=== PATIENT | female | born 1955 | race Caucasian/White ===

== ENCOUNTER 2019-11-20 10:46 | Outpatient (CLI) | payer OTHER, SELFPAY ==
--- NOTE | ~2019-11-20 | XR_ITS ---
EXAMINATION: XR knee LT 3V DATE: 11/20/2019 11:06 INDICATION: Left knee pain. TECHNIQUE: 3 views of left knee were obtained. COMPARISON: None. FINDINGS: Bone alignment is normal. No fracture. There is mild tricompartment osteoarthritis. No knee joint effusion. IMPRESSION: 1. Mild left knee osteoarthritis. Reviewed, dictated and finalized at location B.
== END 2019-11-20 10:47 | disposition home or self-care (01) ==
PROVIDERS: PCP Internal Medicine; Visit Provider Internal Medicine
DX: M25.562 Pain in left knee (principal)
CPT/HCPCS: 73562

== ENCOUNTER 2019-12-02 15:59 | Outpatient (RCR) | payer OTHER, SELFPAY ==
--- NOTE | 2019-12-02 16:41 | PTOPEVAL ---
Thank you for referring Cyndi Pearce to [facility].? The patient is scheduled to be seen for therapy? ____x/week for ___ weeks. Please review, sign, date and return this plan of care ALIDA. I agree with and certify that the following plan of care is medically necessary. Referring Physician Date Admitting Provider: Attending Provider: Peterson Cartwright MD Referring Provider: *PT Outpatient Evaluation Start: 12/02/19 16:12 Freq: Status: Active Protocol: Document 12/02/19 16:12 MAX (Rec: 12/02/19 16:36 MAX [email or web address]) Therapy Assessment Status Assessment Status Assessment Status Evaluation Evaluation Information Problem Diagnosis left knee pain Onset 11/21/19 Additional Evaluation Detail LEFS= 72% limitation Subjective Information Pt. reports she was walking Query Text:As Reported By Patient/ through [facility] and the left Family knee gave out with immediate pain. She reports that she underwent xray which revealed arthritis. She reports that she is currently taking prednisone which has helped to reduce the pressure. She reports that she is continuing to work on her feet all day despite her pain. She reports that that her goal is to reduce her pain. Prior Level of Function Activity Level (Last 3 Months) Hand Dominance Right Activity of Daily Living Ability Independent Indoor/Home Mobility Independent Community Mobility Independent Stairs Ability Independent Functional Cognition (Planning, Shopping Independent , Taking Medications) Cooking Yes Cleaning Yes Laundry Yes Shopping Yes Driving Yes Pain Assessment Pain Scale Pain Scale Used Numeric (1 - 10) Self Report Pain Assessment Left Knee(s) Reported Pain Level 2 Pain Description Aching Lowest Pain Intensity 2 Greatest Pain Intensity 10 Pain Score Pain Score 2: Self Report Lower Extremity Range of Motion General Lower Extremity Range of Motion Gross Lower Extremity Range of Motion right knee AROM 0-118 degree Comments left knee AROM 3-109 degrees Lower Extremity Muscle Strength Testing General Lower Extremity Strength Gross Lower Extremity Strength right hip flexion 4+/5, left hip flexion 4+/5, rig
--- NOTE | 2020-01-08 07:26 | PTOPEVAL ---
Thank you for referring Cyndi Pearce to [facility]. I agree with and certify that the following plan of care is medically necessary. Referring Physician Date Admitting Provider: Attending Provider: Peterson Cartwright MD Referring Provider: *PT Outpatient Evaluation Start: 12/02/19 16:12 Freq: Status: Active Protocol: Document 01/07/20 16:00 MAX (Rec: 01/08/20 07:26 ASHLEY [email or web address]) Therapy Assessment Status Assessment Status Assessment Status Discharge Evaluation Information Problem Diagnosis left knee pain Additional Evaluation Detail LEFS= 50% limitation Subjective Information Pt. reports slight improvement Query Text:As Reported By Patient/ in pain intensity. She Family states that she still has increase in pain at the end of a workday that limits her ability to participate in activity at home. She states that she is still discouraged by her remaining pain. She states that she will return to her doctor and discuss possible MRI. Pain Assessment Pain Scale Pain Scale Used Numeric (1 - 10) Self Report Pain Assessment Left Knee(s) Reported Pain Level 4 Lowest Pain Intensity 2 Greatest Pain Intensity 8 Pain Score Pain Score 4: Self Report Lower Extremity Range of Motion General Lower Extremity Range of Motion Gross Lower Extremity Range of Motion left knee AROM 0-111 degrees Comments Lower Extremity Muscle Strength Testing General Lower Extremity Strength Gross Lower Extremity Strength right hip flexion 5/5, left hip flexion 5/5, right knee flexion 5/5, left knee flexion 4+/5, right knee extension 5/ 5, left knee extension 4+/5, bilateral ankle dorsiflexion 5 /5 Muscle Length Testing Muscle Length Testing Left Hamstring Length 15 Query Text:(90 - 90 Position) Right Hamstring Length 10 Query Text:(90 - 90 Position) Palpation Assessment Palpation Palpation TTP continues to be noted along the medial knee joint line. Special Tests-Lower Extremity Knee Special Tests Bebo's Positive Left Gait Assessment Gait Assessment Additional Ambulation Comments Pt. continues to ambulate with noted antalgia wit
== END 2020-01-07 17:00 | disposition home or self-care (01) ==
LOC: CHSPT 15:59
PROVIDERS: PCP Internal Medicine; Visit Provider Internal Medicine
DX: M25.562 Pain in left knee (principal)
CPT/HCPCS: 97014; 97110; 97161; G0283

== ENCOUNTER 2020-01-01 14:34 | Outpatient (CLI) | payer OTHER, SELFPAY ==
--- NOTE | ~2020-01-01 | MM_ITS ---
EXAMINATION: MM screening tyler BI w shaquille HISTORY: Screening TECHNIQUE: Craniocaudal and mediolateral oblique 3-D tomosynthesis images were obtained and synthetic 2-D images were generated. CAD analysis was submitted and interpreted. COMPARISON: Comparison to multiple prior studies sequentially, with oldest reviewed study dated 08/09. BREAST PARENCHYMAL COMPOSITION: There are scattered areas of fibroglandular density. FINDINGS: There is no evidence of suspicious mass, calcification, or architectural distortion to sugg est malignancy in either breast. There has been no suspicious interval change. IMPRESSION: 1. No mammographic evidence of malignancy. 2. Recommend routine screening mammography in one year. BI-RADS Category 1: Negative Reviewed, dictated and finalized at location A.
== END 2020-01-01 14:35 | disposition home or self-care (01) ==
LOC: CHSIMG 14:35
PROVIDERS: PCP Internal Medicine; Visit Provider Internal Medicine
DX: Z12.31 Encounter for screening mammogram for malignant neoplasm of breast (principal)
CPT/HCPCS: 77063; 77067

== ENCOUNTER 2020-08-11 07:17 | Outpatient (CLI) | payer OTHER, SELFPAY ==
[2020-08-11 07:33] LABS: Add Urine Microscopic? NO; Appearance Urine Clear (Clear); Basophils Absolute Auto 0.07 K/mm3 (0.00-0.10); Basophils Percent Auto 1.1 % (0.0-1.0); Bilirubin Urine Negative (Negative); Blood Urine Negative (Negative); Color Urine Yellow (Yellow); Eosinophils Absolute Auto 0.35 K/mm3 (0.02-0.50); Eosinophils Percent Auto 5.4 % (1.0-6.0); Glucose Urine UA Negative (Negative); Hematocrit 36.6 % (35.0-49.0); Hemoglobin 11.7 g/dL (12.0-15.0); Immature Granulocyte Absolute 0.03 K/mm3 (0.00-0.00); Immature Granulocyte Percent A 0.5 % (0.0-0.0); Ketones Urine Negative (Negative); Leukocyte Esterase Ur Negative LEU/UL (Negative); Lymphocytes Absolute Auto 1.35 K/mm3 (1.10-4.50); Lymphocytes Percent Auto 20.6 % (18.0-42.0); Mean Corpuscular Hemoglobin 26.8 pg (27.0-31.0); Mean Corpuscular Volume 83.8 fL (78.0-102.0); Mean Platelet Volume 8.8 fl (9.2-11.8); Monocytes Absolute Auto 0.61 K/mm3 (0.10-0.90); Monocytes Percent Auto 9.3 % (2.0-11.0); Neutrophils Absolute Auto 4.1 K/mm3 (1.7-7.2); Neutrophils Percent Auto 63.1 % (50.0-70.0); Nitrate Urine Negative (Negative); Platelet Count Result 255 K/mm3 (150-420); Protein Urine Negative (Negative); Red Blood Count 4.37 M/mm3 (4.20-5.40); Red Cell Distribution Width 15.8 % (11.6-14.4); Urobilinogen Urine 0.2 mg/dL (0.2-1.0); White Blood Count 6.5 K/mm3 (4.8-10.8); pH Urine 6.5 (5.0-8.0)
[2020-08-11 09:42] LABS: Alanine Aminotransferase 21 U/L (14-59); Albumin Level 3.9 g/dL (3.4-5.0); Alkaline Phosphatase 104 U/L (46-116); Anion Gap 9 mmol/L (8-16); Aspartate Amino Transferase < 10 U/L (15-37); Bilirubin,Total 0.8 mg/dL (0.00-1.00); Blood Urea Nitrogen 37 mg/dL (7-18); Calcium 9.8 mg/dL (8.5-10.1); Carbon Dioxide 27 mmol/L (21-32); Chloride 105 mmol/L (98-108); Cholesterol 185 mg/dL (0-200); Estimated Glomerular Filt Rate 60; Glucose 88 mg/dL (70-99); HDL Direct 50 mg/dL (40-60); LDL Cholesterol Calculated 119 mg/dL (<130); Osmolality Calculated 299 mOsm/kg (285-295); Sodium 141 mmol/L (136-145); Thyroid Stimulating Hormone 2.03 uIU/mL (0.36-3.74); Total Protein 6.7 g/dL (6.4-8.2); Triglycerides 81 mg/dL (0-150)
== END 2020-08-11 07:18 | disposition home or self-care (01) ==
LOC: CHSLAB 07:20
PROVIDERS: PCP Internal Medicine; Visit Provider Internal Medicine
DX: E66.3 Overweight (principal); I10 Essential (primary) hypertension
CPT/HCPCS: 36415; 80053; 80061; 81003; 84443; 85025

== ENCOUNTER 2020-11-08 15:08 | Outpatient (RCR) | payer MEDICARE, OTHER, MEDICAID, SELFPAY ==
--- NOTE | 2020-11-08 15:52 | PTOPEVAL ---
Thank you for referring Cyndi Pearce to [facility]. Please review, sign, date and return this plan of care ALIDA. I agree with and certify that the following plan of care is medically necessary. Referring Physician Date Admitting Provider: Attending Provider: Evens Dowell, MD Referring Provider: *PT Outpatient Evaluation Start: 11/08/20 15:15 Freq: Status: Active Protocol: Document 11/08/20 15:15 MAX (Rec: 11/08/20 15:51 MAX [email or web address]) Therapy Assessment Status Assessment Status Assessment Status Evaluation Evaluation Information Problem Diagnosis pre op left TKA Onset 10/25/19 Subjective Information Pt. reports that she will Query Text:As Reported By Patient/ undergo left TKA on 12/21/20. Family She reports that knee pain began around 10/25/19. She recalls initial pain after walking through [employer] and knee gave out. She states that her pain is constant. She states that pain is most notable with steps. She states that she has 5 step sto enter her home. She reports that her goal is to develop an exercise program to perform before surgery. 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 states that work requires Comments her to be on her feet majority of the day for 5 hours 4 days a week. She states that she has a cane and walker at home. Pain Assessment Timing of Pain Assessment Timing of Pain Assessment Pre-Treatment Pain Scale Pain Scale Used Numeric (1 - 10) Self Report Pain Assessment Left Knee(s) Reported Pain Level 4 Pain Frequency Continuous Lowest Pain Intensity 2 Greatest Pain Intensity 8 Pain Aggravating Factors
--- NOTE | 2020-12-23 16:08 | PTOPEVAL ---
Thank you for referring Cyndi Pearce to [facility].? The patient is scheduled to be seen for therapy? ____x/week for ___ weeks. Please review, sign, date and return this plan of care ALIDA. I agree with and certify that the following plan of care is medically necessary. Referring Physician Date Admitting Provider: Attending Provider: Evens Dowell, Referring Provider: *PT Outpatient Evaluation Start: 11/08/20 15:15 Freq: Status: Active Protocol: Document 12/23/20 15:18 [facility] (Rec: 12/23/20 16:05 [facility] [email or web address]) Therapy Assessment Status Assessment Status Assessment Status Re-evaluation Evaluation Information Problem Diagnosis s/p L TKA Onset 12/21/20 Subjective Information patient reports she had L TKA Query Text:As Reported By Patient/ on 12/21/20. she reports the Family surgery was performed by Dr. Dowell. patient reports she cannot have pain meds. she reports she has been using tylenol and ice compression. she is currently using a walker for ambulation. she reports she has steps at home to get in the house (5 steps). Prior Level of Function Comments Additional Prior Level of Function prior to surgery, patient Comments reports she had pain at all times in the L knee and was limping a lot. she reports she was doing exercises daily to improve her ROM and strength. Pain Assessment Timing of Pain Assessment Timing of Pain Assessment Assessment Pain Scale Pain Scale Used Numeric (1 - 10) Self Report Pain Assessment Left Knee(s) Reported Pain Level 6 Pain Score Pain Score 6: Self Report Interventions Used Interventions Used By Clinicians Activity or ADL's,Compression Pump,Education,Exercise,Ice Lower Extremity Range of Motion Knee Range of Motion Left Knee Flexion Range of Motion - Active 58 Knee Extension Range of Motion - Active -3 Query Text: Right Knee Flexion Range of Motion - Active 116 Knee Extension Range of Motion - Active 0 Query Text: Lower Extremity Muscle Strength Testing Hip Strength Right Hip Flexion Strength 4+ Good + Left Hip Flexion Strength 2 Poor Knee Strength Right Knee Flexion Strength 4+ Good + Knee Extension Strength 4+ Good + Left Knee Flexion Strength 3+ Fair + Knee Extension Strength 3+ Fair + M
--- NOTE | 2021-01-28 14:19 | PTOPEVAL ---
Thank you for referring Cyndi Pearce to [facility].? The patient is scheduled to be seen for therapy? ____x/week for ___ weeks. Please review, sign, date and return this plan of care ALIDA. I agree with and certify that the following plan of care is medically necessary. Referring Physician Date Admitting Provider: Attending Provider: Evens Dowell, Referring Provider: *PT Outpatient Evaluation Start: 11/08/20 15:15 Freq: Status: Active Protocol: Document 01/28/21 13:06 ACR (Rec: 01/28/21 14:10 ACR [email or web address]) Therapy Assessment Status Assessment Status Assessment Status Progress Evaluation Information Problem Diagnosis L TKA Onset 12/21/20 Subjective Information Patient reports that since Query Text:As Reported By Patient/ beginning therapy she has been Family feeling pretty good. She states that she still has quite a bit of swelling that limits her mobility. She reports that if she stands or walks for too long she is really sore and swollen. She states that steps are slightly difficult but takes them slow . Pain Assessment Timing of Pain Assessment Timing of Pain Assessment Assessment Pain Scale Pain Scale Used Numeric (1 - 10) Self Report Pain Assessment Left Knee(s) Reported Pain Level 0 Greatest Pain Intensity 3 Pain Score Pain Score 0: Self Report Interventions Used Interventions Used By Clinicians Activity or ADL's,Exercise Lower Extremity Range of Motion Knee Range of Motion Left Knee Flexion Range of Motion - Active 96 Knee Extension Range of Motion - Active 0 Query Text: Lower Extremity Muscle Strength Testing Hip Strength Right Hip Flexion Strength 4+ Good + Left Hip Flexion Strength 3+ Fair + Knee Strength Right Knee Flexion Strength 5 Normal Knee Extension Strength 5 Normal Left Knee Flexion Strength 4 Good Knee Extension Strength 4 Good Palpation Assessment Palpation Palpation R medial joint line: 40 cm L medial joint line: 44.5 cm General Exercise General Exercises Exercise Description -Nustep x 10 min L5 Query Text:Record Sets, Reps, - SAQ 2# x 30 Resistance, and Position - SLR x 25 - passive stretching into knee flexion x 6 minutes - gastroc incline board x 2
== END 2021-02-04 23:59 | disposition still patient (30) ==
LOC: CHSPT 15:08
PROVIDERS: Visit Provider Orthopaedic Surgery
DX: M17.12 Unilateral primary osteoarthritis, left knee (principal); Z96.652 Presence of left artificial knee joint
CPT/HCPCS: 97016; 97110; 97161; 97164; 97530

== ENCOUNTER 2020-11-26 10:20 | Outpatient (CLI) | payer OTHER, SELFPAY ==
--- NOTE | ~2020-11-26 | XR_ITS ---
EXAMINATION: XR chest 2V DATE: 11/26/2020 11:17 INDICATION: History of hypertension TECHNIQUE: PA and lateral views of the chest are obtained. COMPARISON: None available FINDINGS: The lungs are free of acute opacities. There is no pleural effusion or pneumothorax. The ca rdiomediastinal silhouette is normal. There are bridging osteophytes at multiple levels in the spine, consistent with diffuse idiopathic skeletal hyperostosis (DISH). There are partially imaged changes of fusion procedure in the lower cervical spine. Right upper paratracheal surgical clips are noted. IMPRESSION: 1. No acute cardiopulmonary abnormality. Reviewed, dictated and finalized at location A.
[2020-11-26 10:37] LABS: Basophils Absolute Auto 0.05 K/mm3 (0.00-0.10); Eosinophils Percent Auto 7.9 % (1.0-6.0); Hematocrit 37.6 % (35.0-49.0); Immature Granulocyte Absolute 0.03 K/mm3 (0.00-0.00); Immature Granulocyte Percent A 0.6 % (0.0-0.0); Lymphocytes Absolute Auto 1.06 K/mm3 (1.10-4.50); Mean Corpuscular HGB Conc 31.9 g/dL (32.0-36.0); Mean Corpuscular Volume 84.7 fL (78.0-102.0); Mean Platelet Volume 8.9 fl (9.2-11.8); Monocytes Absolute Auto 0.51 K/mm3 (0.10-0.90); Monocytes Percent Auto 10.1 % (2.0-11.0); Neutrophils Percent Auto 59.4 % (50.0-70.0); Platelet Count Result 264 K/mm3 (150-420); Red Blood Count 4.44 M/mm3 (4.20-5.40); Red Cell Distribution Width 15.5 % (11.6-14.4)
[2020-11-26 10:38] LABS: Add Urine Microscopic? NO; Appearance Urine Clear (Clear); Bilirubin Urine Negative (Negative); Blood Urine Negative (Negative); Color Urine Light Yellow (Yellow); Glucose Urine UA Negative (Negative); Ketones Urine Negative (Negative); Leukocyte Esterase Ur Negative (Negative); Nitrate Urine Negative (Negative); Protein Urine Negative (Negative); Specific Grav Ur <= 1.005 (1.010-1.020); Urobilinogen Urine 0.2 mg/dL (0.2-1.0)
[2020-11-26 10:53] LABS: INR 1.1; Partial Thromboplastin Time 26.2 SEC (23.90-30.70); Prothrombin Time 11.4 Seconds (9.50-12.10)
--- NOTE | 2020-11-26 10:55 | ECG_ITS ---
Measurements Intervals [place] Rate: 51 P: 59 NC: 180 QRS: 38 QRSD: 91 T: 49 QT: 401 QTc: 373 Interpretive Statements SINUS BRADYCARDIA LOW QRS VOLTAGE IN PRECORDIAL LEADS CANNOT RULE OUT SEPTAL INFARCT, AGE INDETERMINATE ABNORMAL ECG Electronically Signed On 11-26-2020 12:13:30 CDT by Man Henry D.O.
[2020-11-26 12:00] LABS: Alanine Aminotransferase 24 U/L (14-59); Albumin Level 4.1 g/dL (3.4-5.0); Alkaline Phosphatase 93 U/L (46-116); Anion Gap 6 mmol/L (8-16); Aspartate Amino Transferase 13 U/L (15-37); Bilirubin,Total 1.1 mg/dL (0.00-1.00); Blood Urea Nitrogen 28 mg/dL (7-18); Calcium 10.2 mg/dL (8.5-10.1); Carbon Dioxide 29 mmol/L (21-32); Chloride 105 mmol/L (98-108); Estimated Glomerular Filt Rate > 60; Glucose 68 mg/dL (70-99); Osmolality Calculated 293 mOsm/kg (285-295); Potassium 4.3 mmol/L (3.5-5.1); Sodium 140 mmol/L (136-145)
== END 2020-11-26 10:21 | disposition home or self-care (01) ==
LOC: CHSLAB 10:22
PROVIDERS: PCP Internal Medicine; Visit Provider Orthopaedic Surgery
DX: Z01.818 Encounter for other preprocedural examination (principal)
CPT/HCPCS: 36415; 71046; 80053; 81003; 85025; 85610; 85730; 87081; 87086; 93005

== ENCOUNTER 2020-12-09 08:30 | Outpatient (CLI) | payer OTHER, SELFPAY ==
--- NOTE | 2020-12-09 09:30 | ECHO_ITS ---
Patient Info Name: Cyndi Pearce Age: 65 years : 1955 Gender: Female Ht: 65 in Wt: 210 lbs BSA: 2.13 m2 HR: 73 bpm BP: 140 / 71 mmHg Exam Date: 12/09/2020 8:37 AM Exam Location: [facility] Patient Status: Outpatient Admit Date: 12/09/2020 Staff Ordering Physician: Peterson Cartwright MD Shot Polisher: Dwaine Salvador, DANIEL, RT Attending Provider: Peterson Cartwright MD Exam Type: CA echo doppler color flow Study Info Indications R94.31 - Abnormal electrocardiogram ECG EKG Complete two-dimensional, color flow and Doppler transthoracic echocardiogram is performed. Strain analysis performed. Summary 1. Complete two-dimensional, color flow and Doppler transthoracic echocardiogram is performed. 2. Left ventricular chamber dimension is normal. 3. Left ventricular systolic function is normal, estimated at 60-65%. 4. The left ventricular diastolic function is normal. 5. E/e' 6 is not elevated. 6. Global longitudinal strain is normal at -24.8%. 7. There is mild aortic valve sclerosis. 8. There is trace mitral valve regurgitation. 9. No pulmonary hypertension, estimated pulmonary arterial systolic pressure is 32 mmHg. Left Ventricle E/e' 6 is not elevated. Global longitudinal strain is normal at -24.8%. Left ventricular chamber dimension is normal. Left ventricular systolic function is normal, estimated at 60-65%. The left ventricular diastolic function is normal. Right Ventricle Right ventricular systolic function is normal with normal TAPSE 3.2 cm. Right ventricular chamber dimension is normal. Left Atria Left atrial chamber dimension is normal. Right Atria Right atrial chamber dimension is normal. Aortic Valve The aortic valve is trileaflet. There is mild aortic valve sclerosis. There is no aortic valve stenosis. There is no aortic valve regurgitation. Pulmonic Valve There is no pulmonic regurgitation. Mitral Valve There is no mitral valve stenosis. There is trace mitral valve regurgitation. Tricuspid Valve There is no tricuspid valve regurgitation. No pulmonary hypertension, estimated pulmonary arterial systolic pressure is 32 mmHg. Pericardium/Pleural There is no pericardial effusion. Inferior Vena Cava Normal inferior vena cava with >50% collapse upon inspiration consistent with normal right atrial pressure, 5 mmHg. Aorta The aortic root size at the sinus of Valsalva is normal. Left Ventricular Outflow Tract Name Value Normal LVOT 2D LVOT Diameter 2.0 cm LVOT Doppler LVOT Peak Velocity 154 cm/s LVOT Peak Gradient 9 mmHg LVOT Mean Gradient 4 mmHg LVOT VTI 31 cm LVOT VTI/AV VTI Ratio 0.8 LVOT Stroke Volume 96 ml Mitral Valve Name Value Normal MV Doppler
== END 2020-12-09 08:31 | disposition home or self-care (01) ==
PROVIDERS: PCP Internal Medicine; Visit Provider Internal Medicine
DX: R94.31 Abnormal electrocardiogram [ECG] [EKG] (principal)
CPT/HCPCS: 93306

== ENCOUNTER 2021-02-07 14:19 | Outpatient (RCR) | payer MEDICARE, MEDICAID, SELFPAY ==
--- NOTE | 2021-02-24 11:06 | PTOPEVAL ---
Thank you for referring Cyndi Pearce to [facility].? The patient is scheduled to be seen for therapy? ____x/week for ___ weeks. Please review, sign, date and return this plan of care ALIDA. I agree with and certify that the following plan of care is medically necessary. Referring Physician Date Admitting Provider: Attending Provider: Evens Dowell, Referring Provider: *PT Outpatient Evaluation Start: 02/24/21 10:18 Freq: Status: Active Protocol: Document 02/24/21 10:18 ACR (Rec: 02/24/21 11:05 ACR [email or web address]) Therapy Assessment Status Assessment Status Assessment Status Progress Evaluation Information Problem Diagnosis L TKA Onset 12/21/20 Subjective Information Patient states that she is Query Text:As Reported By Patient/ doing pretty good. Most days Family she ices before bed. She states that if she is on her feet all day, she needs to sit and rest because it swells. She states that she is going back to the MD on 03/21 Pain Assessment Timing of Pain Assessment Timing of Pain Assessment Pre-Treatment Pain Scale Pain Scale Used Numeric (1 - 10) Self Report Pain Assessment Left Knee(s) Reported Pain Level 0 Greatest Pain Intensity 4 Pain Score Pain Score 0: Self Report Interventions Used Interventions Used By Clinicians Activity or ADL's,Exercise Lower Extremity Range of Motion Knee Range of Motion Left Knee Flexion Range of Motion - Active 105 Knee Extension Range of Motion - Active 0 Query Text: Lower Extremity Muscle Strength Testing Knee Strength Right Knee Flexion Strength 4+ Good + Knee Extension Strength 4+ Good + Left Knee Flexion Strength 4+ Good + Knee Extension Strength 4 Good Gait Assessment Gait Assessment Additional Ambulation Comments Patient ambulates into the clinic with no gait deviations , but after doing standing exercises the patient demonstrates some antalgia due to decreased stance time on the L. General Exercise General Exercises Exercise Description - gastroc incline board x 2 Query Text:Record Sets, Reps, min Resistance, and Position - heel/toe raises x 30 - hip abd/ext x 30 vik - 8 step ups left x 25 - 8 lateral step ups left x 25
--- NOTE | 2021-03-14 10:05 | PTOPEVAL ---
Thank you for referring Cyndi Pearce to [facility].? The patient is scheduled to be seen for therapy? ____x/week for ___ weeks. Please review, sign, date and return this plan of care ALIDA. I agree with and certify that the following plan of care is medically necessary. Referring Physician Date Admitting Provider: Attending Provider: Evens Dowell, Referring Provider: *PT Outpatient Evaluation Start: 02/24/21 10:18 Freq: Status: Active Protocol: Document 03/14/21 09:06 [facility] (Rec: 03/14/21 10:05 [facility] [email or web address]) Therapy Assessment Status Assessment Status Assessment Status Discharge Evaluation Information Problem Diagnosis L TKA Onset 12/21/20 Subjective Information Patient reports that since Query Text:As Reported By Patient/ beginning therapy she is Family walking a lot better. She states that she feels it is bending a lot better than before surgery. she states she is able to navigate steps, and get in and out of her care with minimal difficulty. Pain Assessment Timing of Pain Assessment Timing of Pain Assessment Assessment Pain Scale Pain Scale Used Numeric (1 - 10) Self Report Pain Assessment Left Knee(s) Reported Pain Level 0 Greatest Pain Intensity 4 Pain Score Pain Score 0: Self Report Interventions Used Interventions Used By Clinicians Activity or ADL's,Exercise Lower Extremity Range of Motion Knee Range of Motion Left Knee Flexion Range of Motion - Active 110 Knee Extension Range of Motion - Passive 0 Lower Extremity Muscle Strength Testing Knee Strength Right Knee Flexion Strength 5 Normal Knee Extension Strength 5 Normal Left Knee Flexion Strength 5 Normal Knee Extension Strength 4+ Good + Gait Assessment Gait Assessment Additional Ambulation Comments Patient ambulates within the clinic with good margot speed and good heel strike with no antalgia. General Exercise General Exercises Exercise Description - gastroc incline board x 2 Query Text:Record Sets, Reps, min Resistance, and Position - heel/toe raises x 30 - hip abd/ext x 30 vik - 8 step ups left x 25 - 8 lateral step ups left x 25 - 8 step downs x 20 - fitterboard taps x 20 - heel slides down wall x 5
--- NOTE | 2021-03-14 10:06 | PTOPEVAL ---
Thank you for referring Cyndi Pearce to [facility] [place].? The patient is scheduled to be seen for therapy? ____x/week for ___ weeks. Please review, sign, date and return this plan of care ALIDA. I agree with and certify that the following plan of care is medically necessary. Referring Physician Date Admitting Provider: Attending Provider: Evens Doewll, Referring Provider: *PT Outpatient Evaluation Start: 02/24/21 10:18 Freq: Status: Active Protocol: Document 03/14/21 09:06 [facility] (Rec: 03/14/21 10:05 [facility] [email or web address]) Therapy Assessment Status Assessment Status Assessment Status Discharge Evaluation Information Problem Diagnosis L TKA Onset 12/21/20 Subjective Information Patient reports that since Query Text:As Reported By Patient/ beginning therapy she is Family walking a lot better. She states that she feels it is bending a lot better than before surgery. she states she is able to navigate steps, and get in and out of her care with minimal difficulty. Pain Assessment Timing of Pain Assessment Timing of Pain Assessment Assessment Pain Scale Pain Scale Used Numeric (1 - 10) Self Report Pain Assessment Left Knee(s) Reported Pain Level 0 Greatest Pain Intensity 4 Pain Score Pain Score 0: Self Report Interventions Used Interventions Used By Clinicians Activity or ADL's,Exercise Lower Extremity Range of Motion Knee Range of Motion Left Knee Flexion Range of Motion - Active 110 Knee Extension Range of Motion - Passive 0 Lower Extremity Muscle Strength Testing Knee Strength Right Knee Flexion Strength 5 Normal Knee Extension Strength 5 Normal Left Knee Flexion Strength 5 Normal Knee Extension Strength 4+ Good + Gait Assessment Gait Assessment Additional Ambulation Comments Patient ambulates within the clinic with good margot speed and good heel strike with no antalgia. General Exercise General Exercises Exercise Description - gastroc incline board x 2 Query Text:Record Sets, Reps, min Resistance, and Position - heel/toe raises x 30 - hip abd/ext x 30 vik - 8 step ups left x 25 - 8 lateral step ups left x 25 - 8 step downs x 20 - fitterboard taps x 20 - heel slides down wall x 5
--- NOTE | 2021-03-14 10:09 | PTOPEVAL ---
Thank you for referring Cyndi Pearce to [facility].? The patient is scheduled to be seen for therapy? ____x/week for ___ weeks. Please review, sign, date and return this plan of care ALIDA. I agree with and certify that the following plan of care is medically necessary. Referring Physician Date Admitting Provider: Attending Provider: Evens Dowell, Referring Provider: *PT Outpatient Evaluation Start: 02/24/21 10:18 Freq: Status: Active Protocol: Document 03/14/21 09:06 [facility] (Rec: 03/14/21 10:05 [facility] [id number]) Therapy Assessment Status Assessment Status Assessment Status Progress Evaluation Information Problem Diagnosis L TKA Onset 12/21/20 Subjective Information Patient reports that since Query Text:As Reported By Patient/ beginning therapy she is Family walking a lot better. She states that she feels it is bending a lot better than before surgery. she states she is able to navigate steps, and get in and out of her care with minimal difficulty. Pain Assessment Timing of Pain Assessment Timing of Pain Assessment Assessment Pain Scale Pain Scale Used Numeric (1 - 10) Self Report Pain Assessment Left Knee(s) Reported Pain Level 0 Greatest Pain Intensity 4 Pain Score Pain Score 0: Self Report Interventions Used Interventions Used By Clinicians Activity or ADL's,Exercise Lower Extremity Range of Motion Knee Range of Motion Left Knee Flexion Range of Motion - Active 110 Knee Extension Range of Motion - Passive 0 Lower Extremity Muscle Strength Testing Knee Strength Right Knee Flexion Strength 5 Normal Knee Extension Strength 5 Normal Left Knee Flexion Strength 5 Normal Knee Extension Strength 4+ Good + Gait Assessment Gait Assessment Additional Ambulation Comments Patient ambulates within the clinic with good margot speed and good heel strike with no antalgia. General Exercise General Exercises Exercise Description - gastroc incline board x 2 Query Text:Record Sets, Reps, min Resistance, and Position - heel/toe raises x 30 - hip abd/ext x 30 vik - 8 step ups left x 25 - 8 lateral step ups left x 25 - 8 step downs x 20 - fitterboard taps x 20 - heel slides down wall x 5
--- NOTE | 2021-04-22 09:55 | PTOPEVAL ---
Thank you for referring Cyndi Pearce to [facility].? The patient is scheduled to be seen for therapy? ____x/week for ___ weeks. Please review, sign, date and return this plan of care ALIDA. I agree with and certify that the following plan of care is medically necessary. Referring Physician Date Admitting Provider: Attending Provider: Evens Dowell, Referring Provider: *PT Outpatient Evaluation Start: 02/24/21 10:18 Freq: Status: Active Protocol: Document 04/22/21 09:08 [facility] (Rec: 04/22/21 09:55 [facility] [id number]) Therapy Assessment Status Assessment Status Assessment Status Discharge Evaluation Information Problem Diagnosis L TKA Onset 12/21/20 Subjective Information Patient states that she is Query Text:As Reported By Patient/ doing better, but her leg and Family foot are swelling and she thinks it is from working more and changing blood pressure medication. She patient states that steps are alright unless she works and then has to modify it a different way. The patient states the knee is pretty good and can do most of the stuff at home. Pain Assessment Timing of Pain Assessment Timing of Pain Assessment Assessment Pain Scale Pain Scale Used Numeric (1 - 10) Self Report Pain Assessment Left Knee(s) Reported Pain Level 0 Greatest Pain Intensity 4 Pain Score Pain Score 0: Self Report Interventions Used Interventions Used By Clinicians Activity or ADL's,Exercise Lower Extremity Range of Motion Knee Range of Motion Left Knee Flexion Range of Motion - Active 110 Knee Extension Range of Motion - Active 0 Query Text: Lower Extremity Muscle Strength Testing Knee Strength Right Knee Flexion Strength 5 Normal Knee Extension Strength 5 Normal Left Knee Flexion Strength 5 Normal Knee Extension Strength 5 Normal General Exercise General Exercises Exercise Description - gastroc incline board x 2 Query Text:Record Sets, Reps, min Resistance, and Position - heel/toe raises x 30 - hip abd/ext x 30 vik - 8 step ups left x 30 - 8 lateral step ups left x 30 - 6 step downs x 20 - heel slides down wall x 6 minutes - foam tandem stance x 2 min
== END 2021-04-22 10:31 | disposition home or self-care (01) ==
LOC: CHSPT 14:19
PROVIDERS: Visit Provider Orthopaedic Surgery
DX: Z96.652 Presence of left artificial knee joint (principal)
CPT/HCPCS: 97016; 97110; 97530

== ENCOUNTER 2021-06-03 15:53 | Outpatient (CLI) | payer MEDICARE, SELFPAY ==
[2021-06-03 16:11] LABS: Basophils Absolute Auto 0.05 K/mm3 (0.00-0.10); Basophils Percent Auto 0.8 % (0.0-1.0); Eosinophils Absolute Auto 0.41 K/mm3 (0.02-0.50); Eosinophils Percent Auto 6.5 % (1.0-6.0); Hematocrit 37.5 % (35.0-42.0); Hemoglobin 11.8 g/dL (11.7-13.8); Immature Granulocyte Absolute 0.02 K/mm3 (0.00-0.00); Immature Granulocyte Percent A 0.3 % (0.0-0.0); Lymphocytes Absolute Auto 1.14 K/mm3 (1.10-4.50); Mean Corpuscular HGB Conc 31.5 g/dL (32.0-36.0); Mean Corpuscular Hemoglobin 27.4 pg (27.0-31.0); Mean Platelet Volume 8.7 fl (9.2-11.8); Monocytes Absolute Auto 0.62 K/mm3 (0.10-0.90); Monocytes Percent Auto 9.8 % (2.0-11.0); Neutrophils Absolute Auto 4.1 K/mm3 (1.7-7.2); Neutrophils Percent Auto 64.6 % (50.0-70.0); Platelet Count Result 281 K/mm3 (150-420); Red Blood Count 4.31 M/mm3 (4.20-5.40); Red Cell Distribution Width 14.9 % (11.6-14.4); White Blood Count 6.4 K/mm3 (4.8-10.8)
[2021-06-03 16:33] LABS: Alanine Aminotransferase 23 U/L (14-59); Albumin Level 4.1 g/dL (3.4-5.0); Alkaline Phosphatase 106 U/L (46-116); Anion Gap 7 mmol/L (8-16); Aspartate Amino Transferase 15 U/L (15-37); Bilirubin,Total 0.6 mg/dL (0.00-1.00); Blood Urea Nitrogen 29 mg/dL (7-18); Calcium 10.2 mg/dL (8.5-10.1); Carbon Dioxide 31 mmol/L (21-32); Chloride 102 mmol/L (98-108); Creatine Kinase 55 U/L (26-192); Estimated Glomerular Filt Rate > 60; Glucose 93 mg/dL (70-99); NT Pro B Type Natriuretic Pept 77 pg/mL (0-125); Osmolality Calculated 295 mOsm/kg (285-295); Sodium 140 mmol/L (136-145); Total Protein 7.4 g/dL (6.4-8.2); Troponin I 6.1 ng/L (0.00-60.4)
== END 2021-06-03 15:54 | disposition home or self-care (01) ==
LOC: CHSLAB 15:55
PROVIDERS: PCP Internal Medicine; Visit Provider Internal Medicine
DX: R07.9 Chest pain, unspecified (principal); I10 Essential (primary) hypertension; R06.02 Shortness of breath
CPT/HCPCS: 36415; 80053; 82550; 82553; 83880; 84484; 85025

== ENCOUNTER 2021-06-04 09:39 | Outpatient (CLI) | payer MEDICARE, SELFPAY ==
[2021-06-04 10:44] LABS: Phosphorus 3.3 mg/dL (2.6-4.7)
[2021-06-08 06:06] LABS: Ionized Calcium 5.6 mg/dL (4.8-5.6)
[2021-06-08 10:55] LABS: Parathyroid Intact 44 pg/mL (14-64)
[2021-06-08 16:25] LABS: Albumin 4.1 g/dL (3.8-4.8); Alpha 1 Globulin 0.3 g/dL (0.2-0.3); Alpha 2 Globulin 0.8 g/dL (0.5-0.9); Beta 1 Globulin 0.5 g/dL (0.4-0.6); Protein, Total 6.9 g/dL (6.1-8.1)
== END 2021-06-04 09:40 | disposition home or self-care (01) ==
LOC: CHSLAB 09:41
PROVIDERS: PCP Internal Medicine; Visit Provider Internal Medicine
DX: E83.52 Hypercalcemia (principal)
CPT/HCPCS: 36415; 82330; 83970; 84100; 84155; 84165; 86334

== ENCOUNTER 2021-07-20 09:06 | Outpatient (CLI) | payer MEDICARE, MEDICAID, SELFPAY ==
--- NOTE | ~2021-07-20 | NM_ITS ---
EXAMINATION: NM chhaya stress w perfusion DATE: 07/20/2021 11:15 INDICATION: Chest pain TECHNIQUE: Rest images were obtained following intravenous administration of 11.22 mCi Tc99m tetrofos min (Myoview). The patient was infused intravenously with Lexiscan (Regadenoson). Then, 32.4 mCi Tc99 m tetrofosmin (Myoview) was administered intravenously, and stress images were obtained. Data was rec onstructed into short axis and horizontal and vertical long axis SPECT images. Gated SPECT images wer e also obtained. COMPARISON: None. FINDINGS: There is no definite reversible or fixed perfusion abnormality to suggest ischemia or infar ction. There is normal left ventricular chamber size, wall motion and ejection fraction. Left ventr icular ejection fraction measures >70%. IMPRESSION: 1. Normal myocardial perfusion at rest and during stress. 2. Left ventricular ejection fraction measuring >70%. Reviewed, dictated and finalized at location B.
--- NOTE | 2021-07-20 09:37 | EST_ITS ---
Patient Info Name: Cyndi Pearce Age: 66 years : 1955 Gender: Female Ht: 64 in Wt: 220 lbs BSA: 2.17 m2 Exam Date: 07/20/2021 10:10 AM Exam Location: [facility] Stress Patient Status: Outpatient Admit Date: 07/20/2021 Staff Ordering Physician: Man Henry DO Attending Provider: Man Henry DO Exercise Technologist: Dwaine Salvador RDCS, RT Exercise Physician: Man Henry DO Exam Type: CA stress chhaya w NM Study Info A regadenoson stress test was performed. Summary 1. 1. Negative lexiscan stress test for ischemic ST changes by ECG criteria. 2. 2. Baseline hypertension. 3. 3. Nuclear scan to follow and will be reported separately. Please correlate with it. 4. 4. Patient informed of the above results. Protocol: Lexiscan Stress ECG Details Stage: REST Duration (min): 6 min : 48 sec HR (bpm): 59 SBP (mmHg): 158 DBP (mmHg): 65 Stage: REST Duration (min): 7 min : 4 sec HR (bpm): 57 SBP (mmHg): 158 DBP (mmHg): 65 Stage: STAGE 1 Duration (min): 1 min : 0 sec HR (bpm): 88 SBP (mmHg): 158 DBP (mmHg): 65 Stage: RECOVERY Duration (min): 1 min : 0 sec HR (bpm): 90 SBP (mmHg): 184 DBP (mmHg): 53 Stage: RECOVERY Duration (min): 2 min : 0 sec HR (bpm): 83 SBP (mmHg): 184 DBP (mmHg): 53 Stage: RECOVERY Duration (min): 3 min : 0 sec HR (bpm): 84 SBP (mmHg): 163 DBP (mmHg): 58 Stage: RECOVERY Duration (min): 3 min : 13 sec HR (bpm): 81 SBP (mmHg): 163 DBP (mmHg): 58 Rest HR: 57 bpm Peak HR: 92 bpm Rest Sys BP: 158 mmHg Peak Sys BP: 184 mmHg Max Pred HR: 155 bpm % Max Pred HR: 59 % Target HR: 132 bpm Max RPP: 16,928 bpm*mmHg Termination Reason: Completed protocol Cardiac Symptoms: Shortness of breath Total Time: 1 min : 0 sec Rest Parker BP: 65 mmHg Peak Parker BP: 53 mmHg Total Dose: 0.4 mg Resting ECG Sinus rhythm, PVC, low voltage in precordial leads. Stress ECG No ST changes. Arrhythmias None. Report Signatures
== END 2021-07-20 09:07 | disposition home or self-care (01) ==
LOC: ANHCARD 09:09
PROVIDERS: PCP Internal Medicine; Visit Provider Internal Medicine Cardiovascular Disease
DX: R07.9 Chest pain, unspecified (principal)
CPT/HCPCS: 78452; 93017; A9502; J2785

== ENCOUNTER 2021-09-14 14:17 | Outpatient (CLI) | payer MEDICARE, MEDICAID, SELFPAY ==
--- NOTE | ~2021-09-14 | MM_ITS ---
EXAMINATION: MM screening [facility] BI w shaquille HISTORY: Screening mammogram TECHNIQUE: Craniocaudal and mediolateral oblique 3-D tomosynthesis images were obtained and synthetic 2-D images were generated. CAD analysis was submitted and interpreted. COMPARISON: 01/01/2020, 09/19/2018, 08/09/2017 bilateral screening mammogram examinations BREAST PARENCHYMAL COMPOSITION: There are scattered areas of fibroglandular density. FINDINGS: Interval benign circumscribed fat-containing lesion in the upper outer left breast. Stable upper outer quadrant benign left intramammary lymph node. There is no evidence of suspicious mass, ca lcification, or architectural distortion to suggest malignancy in either breast. There has been no redmond spicious interval change. IMPRESSION: 1. No mammographic evidence of malignancy. 2. Recommend routine screening mammography in one year. BI-RADS Category 2: Benign finding(s). Reviewed, dictated and finalized at location A.
--- NOTE | ~2021-09-14 | DEXA_ITS ---
Bone Density Report Name: JUSTIN BLANKENSHIP Age: 66 Sex: Female Ethnicity: White Date of : 1955 Indication: postmenopausal; screening for osteoporosis; height loss; hysterectomy; Referring Provider: Noah, Josi Davenport Study: Bone densitometry was performed. Exam Date: September 14, 2021 Accession number: [id number] Bone Density: Region BMD T-score Z-score Classification AP Spine(L1-L4) 1.201 1.4 3.2 Normal Femoral Neck (Left) 0.764 -0.8 0.8 Normal Total Hip (Left) 0.833 -0.9 0.4 Normal Femoral Neck (Right) 0.729 -1.1 0.5 Osteopenia Total Hip (Right) 0.824 -1.0 0.3 Normal Femoral Neck Mean 0.747 -0.9 0.6 Normal Total Hip Mean 0.829 -0.9 0.3 Normal World Health Organization criteria for BMD impression classify patients as: Normal (T-score at or above -1.0), Osteopenia (T-score between -1.0 and -2.5), or Osteoporosis (T-score at or below -2.5). 10-year Fracture Risk(1): Major Osteoporotic Fracture 7.3% Hip Fracture 0.5% Reported Risk Factors: [place] (), Neck BMD=0.729, BMI=40.2 (1) FRAX(R) Version 3.08. Fracture probability calculated for an untreated patient. Fracture probability may be lower if the patient has received treatment. Clinical Information Provided by Patient: Has used the following medications: Vitamin D, Calcium Has the following medical conditions: Hysterectomy Patient maximum height was 65 Menopause Age: 46 No regular weight bearing exercise Drinks caffeinated beverages Onset of menses at age 11 Number of children 1 Impression: The patient has low bone mass, based on the Right Femoral Neck T-score. Discussion: BONE DENSITY IS LOW AT ONE OR MORE SKELETAL SITES. This patient's lowest T-score is low at one or more skeletal sites. It meets the World Health Organization's (WHO) criteria for ?low bone mass? (T-score between -1.0 and -2.5). The patient's 10-year risk of fracture as calculated by FRAX is less than the threshold where pharmacological therapy is recommended by the National Osteoporosis Foundation (NOF). However, all treatment decisions require clinical judgment and consideration of individual patient factors, including patient preferences, comorbidities, previous drug use, risk factors not captured in the FRAX model (e.g., frailty, falls, vitamin D deficiency, increased bone turnover, interval significant decline in bone density) and possible under or overestimation of fracture risk by FRAX. The patient should follow a healthful lifestyle (good nutrition with adequate calcium and vitamin D, and appropriate weight-bearing exercise). Follow-Up: Consider repeating this study in 2 to 3 years to reassess this patient's status, or sooner if there is some new clinical indication. Reported by: Dr. Sivakumar Andrews on 09/14
== END 2021-09-14 14:18 | disposition home or self-care (01) ==
LOC: CHSIMG 14:19
PROVIDERS: PCP Internal Medicine; Visit Provider Nurse Practitioner Family
DX: Z12.31 Encounter for screening mammogram for malignant neoplasm of breast (principal); Z78.0 Asymptomatic menopausal state
CPT/HCPCS: 77063; 77067; 77080

== ENCOUNTER 2021-10-05 11:01 | Outpatient (CLI) | payer MEDICARE, SELFPAY ==
[2021-10-05 11:12] LABS: Basophils Absolute Auto 0.06 K/mm3 (0.00-0.10); Eosinophils Absolute Auto 0.26 K/mm3 (0.02-0.50); Eosinophils Percent Auto 4.1 % (1.0-6.0); Hematocrit 34.9 % (35.0-42.0); Hemoglobin 10.9 g/dL (11.7-13.8); Immature Granulocyte Absolute 0.04 K/mm3 (0.00-0.00); Immature Granulocyte Percent A 0.6 % (0.0-0.0); Lymphocytes Absolute Auto 1.02 K/mm3 (1.10-4.50); Lymphocytes Percent Auto 16.2 % (18.0-42.0); Mean Corpuscular HGB Conc 31.2 g/dL (32.0-36.0); Mean Corpuscular Hemoglobin 26.3 pg (27.0-31.0); Mean Corpuscular Volume 84.3 fL (78.0-102.0); Mean Platelet Volume 8.8 fl (9.2-11.8); Monocytes Absolute Auto 0.53 K/mm3 (0.10-0.90); Monocytes Percent Auto 8.4 % (2.0-11.0); Neutrophils Absolute Auto 4.4 K/mm3 (1.7-7.2); Neutrophils Percent Auto 69.7 % (50.0-70.0); Platelet Count Result 263 K/mm3 (150-420); Red Blood Count 4.14 M/mm3 (4.20-5.40); Red Cell Distribution Width 16.1 % (11.6-14.4); White Blood Count 6.3 K/mm3 (4.8-10.8)
[2021-10-05 11:17] LABS: Add Urine Microscopic? YES; Appearance Urine Clear (Clear); Bilirubin Urine Negative (Negative); Blood Urine Negative (Negative); Color Urine Light Yellow (Yellow); Glucose Urine UA Negative (Negative); Ketones Urine Negative (Negative); Leukocyte Esterase Ur 1+ LEU/UL (Negative); Nitrate Urine Negative (Negative); Protein Urine Negative (Negative); Urobilinogen Urine 0.2 mg/dL (0.2-1.0)
[2021-10-05 11:24] LABS: Bacteria Urine 1+ /hpf; RBC Urine None seen /hpf (0-2); Squamous Epithelial Cell Urine Occasional /hpf (Few); WBC Urine 16-20 /hpf (0-3)
[2021-10-05 11:36] LABS: Cholesterol 176 mg/dL (0-200); Free T4 Free Thyroxine 1.07 ng/dL (0.76-1.46); HDL Direct 54 mg/dL (40-60); LDL Cholesterol Calculated 108 mg/dL (<130); Triglycerides 68 mg/dL (0-150)
[2021-10-05 14:54] LABS: Alanine Aminotransferase 19 U/L (14-59); Albumin Level 3.9 g/dL (3.4-5.0); Alkaline Phosphatase 91 U/L (46-116); Anion Gap 9 mmol/L (8-16); Aspartate Amino Transferase 11 U/L (15-37); Blood Urea Nitrogen 30 mg/dL (7-18); Calcium 9.9 mg/dL (8.5-10.1); Carbon Dioxide 24 mmol/L (21-32); Chloride 107 mmol/L (98-108); Estimated Glomerular Filt Rate > 60; Glucose 91 mg/dL (70-99); Osmolality Calculated 296 mOsm/kg (285-295); Potassium 4.2 mmol/L (3.5-5.1); Sodium 140 mmol/L (136-145)
[2021-10-08 18:59] LABS: Vitamin D 25 Hydroxy 36 ng/mL (30-100)
== END 2021-10-05 11:02 | disposition home or self-care (01) ==
LOC: CHSLAB 11:02
PROVIDERS: PCP Internal Medicine; Visit Provider Nurse Practitioner Family
DX: M85.80 Other specified disorders of bone density and structure, unspecified site (principal); M85.859 Other specified disorders of bone density and structure, unspecified thigh; I10 Essential (primary) hypertension; R82.90 Unspecified abnormal findings in urine; Z00.00 Encounter for general adult medical examination without abnormal findings
CPT/HCPCS: 36415; 80053; 80061; 81001; 82306; 84439; 84443; 85025; 87077; 87086; 87088; 87186

== ENCOUNTER 2021-10-14 15:19 | Outpatient (CLI) | payer MEDICARE, SELFPAY ==
[2021-10-14 15:39] LABS: Basophils Absolute Auto 0.09 K/mm3 (0.00-0.10); Basophils Percent Auto 1.2 % (0.0-1.0); Eosinophils Absolute Auto 0.36 K/mm3 (0.02-0.50); Eosinophils Percent Auto 4.9 % (1.0-6.0); Hematocrit 35.7 % (35.0-42.0); Hemoglobin 11.3 g/dL (11.7-13.8); Immature Granulocyte Absolute 0.05 K/mm3 (0.00-0.00); Immature Granulocyte Percent A 0.7 % (0.0-0.0); Lymphocytes Absolute Auto 1.19 K/mm3 (1.10-4.50); Lymphocytes Percent Auto 16.1 % (18.0-42.0); Mean Corpuscular HGB Conc 31.7 g/dL (32.0-36.0); Mean Corpuscular Volume 85.4 fL (78.0-102.0); Mean Platelet Volume 8.8 fl (9.2-11.8); Monocytes Absolute Auto 0.76 K/mm3 (0.10-0.90); Monocytes Percent Auto 10.3 % (2.0-11.0); Neutrophils Absolute Auto 4.9 K/mm3 (1.7-7.2); Neutrophils Percent Auto 66.8 % (50.0-70.0); Platelet Count Result 280 K/mm3 (150-420); Red Blood Count 4.18 M/mm3 (4.20-5.40); White Blood Count 7.4 K/mm3 (4.8-10.8)
[2021-10-14 15:40] LABS: Add Urine Microscopic? NO; Appearance Urine Clear (Clear); Bilirubin Urine Negative (Negative); Blood Urine Negative (Negative); Color Urine Light Yellow (Yellow); Glucose Urine UA Negative (Negative); Ketones Urine Negative (Negative); Leukocyte Esterase Ur Negative (Negative); Nitrate Urine Negative (Negative); Protein Urine Negative (Negative); Specific Grav Ur >= 1.030 (1.010-1.020); Urobilinogen Urine 0.2 mg/dL (0.2-1.0); pH Urine 5.5 (5.0-8.0)
[2021-10-14 16:38] LABS: Ferritin 22 ng/mL (8-252); Iron 39 ug/dL (50-170); Percent Iron Saturation 11 % (12-57)
[2021-10-17 13:52] LABS: Immature Reticulocyte Fraction 13.5 % (2.0-16.52); Reticulocyte Hemoglobin Conten 29.5 pg (28.0-35.0); Reticulocyte Percent 1.54 % (0.50-1.50); Reticulocytes Absolute 0.06 M/mm3 (0.02-0.1)
[2021-10-17 14:51] LABS: Erythrocyte Sedimentation Rate 6 mm/hr (0-20)
[2021-10-20 09:29] LABS: Methylmalonic Acid 190 nmol/L (87-318)
== END 2021-10-14 15:20 | disposition home or self-care (01) ==
LOC: CHSLAB 15:24
PROVIDERS: PCP Internal Medicine; Visit Provider Nurse Practitioner Family
DX: D64.9 Anemia, unspecified (principal); N39.0 Urinary tract infection, site not specified; E53.8 Deficiency of other specified B group vitamins
CPT/HCPCS: 36415; 81003; 82728; 83540; 83550; 83921; 85025; 85046; 85652; 87086

== ENCOUNTER 2022-01-20 10:29 | Outpatient (CLI) | payer MEDICARE, MEDICAID, SELFPAY ==
[2022-01-20 10:43] LABS: Basophils Absolute Auto 0.05 K/mm3 (0.00-0.10); Basophils Percent Auto 0.8 % (0.0-1.0); Eosinophils Absolute Auto 0.23 K/mm3 (0.02-0.50); Eosinophils Percent Auto 3.7 % (1.0-6.0); Hematocrit 35.7 % (35.0-42.0); Hemoglobin 11.3 g/dL (11.7-13.8); Immature Granulocyte Absolute 0.03 K/mm3 (0.00-0.00); Immature Granulocyte Percent A 0.5 % (0.0-0.0); Immature Reticulocyte Fraction 11.6 % (2.0-16.52); Lymphocytes Absolute Auto 1.06 K/mm3 (1.10-4.50); Lymphocytes Percent Auto 17.2 % (18.0-42.0); Mean Corpuscular HGB Conc 31.7 g/dL (32.0-36.0); Mean Corpuscular Volume 85.4 fL (78.0-102.0); Monocytes Absolute Auto 0.61 K/mm3 (0.10-0.90); Monocytes Percent Auto 9.9 % (2.0-11.0); Neutrophils Absolute Auto 4.2 K/mm3 (1.7-7.2); Neutrophils Percent Auto 67.9 % (50.0-70.0); Platelet Count Result 267 K/mm3 (150-420); Red Blood Count 4.18 M/mm3 (4.20-5.40); Red Cell Distribution Width 15.5 % (11.6-14.4); Reticulocyte Hemoglobin Conten 30.7 pg (28.0-35.0); Reticulocyte Percent 1.33 % (0.50-1.50); Reticulocytes Absolute 0.06 M/mm3 (0.02-0.1); White Blood Count 6.2 K/mm3 (4.8-10.8)
[2022-01-20 11:37] LABS: Ferritin 25 ng/mL (8-252); Iron 34 ug/dL (50-170); Percent Iron Saturation 10 % (12-57)
[2022-01-20 16:05] LABS: CRP < 0.5 mg/dL (0.0-0.9)
[2022-01-24 08:33] LABS: Methylmalonic Acid 167 nmol/L (87-318)
== END 2022-01-20 10:30 | disposition home or self-care (01) ==
LOC: CHSLAB 10:31
PROVIDERS: PCP Internal Medicine; Visit Provider Internal Medicine
DX: D64.9 Anemia, unspecified (principal)
CPT/HCPCS: 36415; 82728; 83540; 83550; 83921; 85025; 85046; 86140

== ENCOUNTER 2022-07-15 09:31 | Outpatient (CLI) | payer MEDICARE, MEDICAID, SELFPAY ==
[2022-07-15 10:12] LABS: Appearance Urine Clear (Clear); Basophils Absolute Auto 0.05 K/mm3 (0.00-0.10); Basophils Percent Auto 0.8 % (0.0-1.0); Bilirubin Urine Negative (Negative); Blood Urine Negative (Negative); Color Urine Light Yellow (Yellow); Eosinophils Absolute Auto 0.39 K/mm3 (0.02-0.50); Eosinophils Percent Auto 5.9 % (1.0-6.0); Glucose Urine UA Negative (Negative); Hemoglobin 10.9 g/dL (11.7-13.8); Immature Granulocyte Absolute 0.04 K/mm3 (0.00-0.00); Immature Granulocyte Percent A 0.6 % (0.0-0.0); Ketones Urine Negative (Negative); Leukocyte Esterase Ur Negative (Negative); Lymphocytes Absolute Auto 1.28 K/mm3 (1.10-4.50); Lymphocytes Percent Auto 19.5 % (18.0-42.0); Mean Corpuscular HGB Conc 30.3 g/dL (32.0-36.0); Mean Corpuscular Hemoglobin 25.8 pg (27.0-31.0); Mean Corpuscular Volume 85.3 fL (78.0-102.0); Mean Platelet Volume 9.5 fl (9.2-11.8); Monocytes Absolute Auto 0.64 K/mm3 (0.10-0.90); Monocytes Percent Auto 9.8 % (2.0-11.0); Neutrophils Absolute Auto 4.2 K/mm3 (1.7-7.2); Neutrophils Percent Auto 63.4 % (50.0-70.0); Nitrate Urine Negative (Negative); Platelet Count Result 281 K/mm3 (150-420); Protein Urine Negative (Negative); Red Blood Count 4.22 M/mm3 (4.20-5.40); Urobilinogen Urine 0.2 mg/dL (0.2-1.0); White Blood Count 6.6 K/mm3 (4.8-10.8)
[2022-07-15 10:16] LABS: Add Urine Microscopic? NO
[2022-07-15 10:37] LABS: Alanine Aminotransferase 18 U/L (14-59); Albumin Level 3.7 g/dL (3.4-5.0); Alkaline Phosphatase 106 U/L (46-116); Anion Gap 6 mmol/L (8-16); Aspartate Amino Transferase 11 U/L (15-37); Bilirubin,Total 0.7 mg/dL (0.00-1.00); Blood Urea Nitrogen 37 mg/dL (7-18); Calcium 9.6 mg/dL (8.5-10.1); Carbon Dioxide 30 mmol/L (21-32); Chloride 107 mmol/L (98-108); Cholesterol 182 mg/dL (0-200); Estimated Glomerular Filt Rate 55; Glucose 85 mg/dL (70-99); HDL Direct 51 mg/dL (40-60); LDL Cholesterol Calculated 111 mg/dL (<130); Magnesium 1.9 mg/dL (1.8-2.4); Osmolality Calculated 303 mOsm/kg (285-295); Potassium 4.3 mmol/L (3.5-5.1); Sodium 143 mmol/L (136-145); Thyroid Stimulating Hormone 2.18 uIU/mL (0.36-3.74); Total Protein 6.6 g/dL (6.4-8.2); Triglycerides 99 mg/dL (0-150)
== END 2022-07-15 09:32 | disposition home or self-care (01) ==
LOC: CHSLAB 09:33
PROVIDERS: PCP Internal Medicine; Visit Provider Internal Medicine
DX: D64.9 Anemia, unspecified (principal); I10 Essential (primary) hypertension
CPT/HCPCS: 36415; 80053; 80061; 81003; 83735; 84443; 85025

== ENCOUNTER 2022-07-20 10:40 | Outpatient (CLI) | payer MEDICARE, MEDICAID, SELFPAY ==
[2022-07-20 11:10] LABS: Basophils Absolute Auto 0.07 K/mm3 (0.00-0.10); Basophils Percent Auto 1.1 % (0.0-1.0); Eosinophils Absolute Auto 0.36 K/mm3 (0.02-0.50); Eosinophils Percent Auto 5.4 % (1.0-6.0); Hematocrit 36.5 % (35.0-42.0); Hemoglobin 11.7 g/dL (11.7-13.8); Immature Granulocyte Absolute 0.04 K/mm3 (0.00-0.00); Immature Granulocyte Percent A 0.6 % (0.0-0.0); Immature Reticulocyte Fraction 15.9 % (2.0-16.52); Lymphocytes Absolute Auto 1.15 K/mm3 (1.10-4.50); Lymphocytes Percent Auto 17.3 % (18.0-42.0); Mean Corpuscular HGB Conc 32.1 g/dL (32.0-36.0); Mean Corpuscular Hemoglobin 27.1 pg (27.0-31.0); Mean Corpuscular Volume 84.5 fL (78.0-102.0); Mean Platelet Volume 9.3 fl (9.2-11.8); Monocytes Absolute Auto 0.47 K/mm3 (0.10-0.90); Monocytes Percent Auto 7.1 % (2.0-11.0); Neutrophils Absolute Auto 4.6 K/mm3 (1.7-7.2); Neutrophils Percent Auto 68.5 % (50.0-70.0); Platelet Count Result 311 K/mm3 (150-420); Red Blood Count 4.32 M/mm3 (4.20-5.40); Red Cell Distribution Width 15.9 % (11.6-14.4); Reticulocyte Percent 1.75 % (0.50-1.50); Reticulocytes Absolute 0.08 M/mm3 (0.02-0.1); White Blood Count 6.7 K/mm3 (4.8-10.8)
[2022-07-20 11:42] LABS: Ferritin 23 ng/mL (8-252); Iron 50 ug/dL (50-170); Lactate Dehydrogenase 179 U/L (81-234); Percent Iron Saturation 13 % (12-57)
[2022-07-20 11:45] LABS: CRP < 0.5 mg/dL (0.0-0.9)
[2022-07-24 13:53] LABS: Alpha 1 Globulin 0.3 g/dL (0.2-0.3); Alpha 2 Globulin 0.8 g/dL (0.5-0.9); Beta 1 Globulin 0.5 g/dL (0.4-0.6); Gamma Globulin 0.9 g/dL (0.8-1.7); Protein, Total 6.7 g/dL (6.1-8.1)
== END 2022-07-20 10:41 | disposition home or self-care (01) ==
LOC: CHSLAB 10:48
PROVIDERS: PCP Internal Medicine; Visit Provider Internal Medicine
DX: D64.9 Anemia, unspecified (principal)
CPT/HCPCS: 36415; 82728; 83540; 83550; 83615; 84155; 84165; 85025; 85046; 86140; 86334

== ENCOUNTER 2023-01-23 10:34 | Outpatient (CLI) | payer MEDICARE, SELFPAY ==
[2023-01-23 11:03] LABS: Basophils Absolute Auto 0.07 K/mm3 (0.00-0.10); Eosinophils Absolute Auto 0.35 K/mm3 (0.02-0.50); Eosinophils Percent Auto 4.9 % (1.0-6.0); Hematocrit 37.2 % (35.0-42.0); Hemoglobin 11.7 g/dL (11.7-13.8); Immature Granulocyte Absolute 0.06 K/mm3 (0.00-0.00); Immature Granulocyte Percent A 0.8 % (0.0-0.0); Lymphocytes Absolute Auto 1.23 K/mm3 (1.10-4.50); Lymphocytes Percent Auto 17.1 % (18.0-42.0); Mean Corpuscular HGB Conc 31.5 g/dL (32.0-36.0); Mean Corpuscular Hemoglobin 26.9 pg (27.0-31.0); Mean Corpuscular Volume 85.5 fL (78.0-102.0); Mean Platelet Volume 9.2 fl (9.2-11.8); Monocytes Absolute Auto 0.57 K/mm3 (0.10-0.90); Monocytes Percent Auto 7.9 % (2.0-11.0); Neutrophils Absolute Auto 4.9 K/mm3 (1.7-7.2); Neutrophils Percent Auto 68.3 % (50.0-70.0); Platelet Count Result 306 K/mm3 (150-420); Red Blood Count 4.35 M/mm3 (4.20-5.40); Red Cell Distribution Width 15.5 % (11.6-14.4); White Blood Count 7.2 K/mm3 (4.8-10.8)
[2023-01-23 11:08] LABS: Appearance Urine Clear (Clear); Bilirubin Urine Negative (Negative); Blood Urine Negative (Negative); Color Urine Light Yellow (Yellow); Glucose Urine UA Negative (Negative); Ketones Urine Negative (Negative); Leukocyte Esterase Ur Negative LEU/UL (Negative); Nitrate Urine Negative (Negative); Protein Urine Negative (Negative); Urobilinogen Urine 0.2 mg/dL (0.2-1.0); pH Urine 5.5 (5.0-8.0)
[2023-01-23 11:10] LABS: Add Urine Microscopic? NO
[2023-01-23 11:31] LABS: Alanine Aminotransferase 21 U/L (14-59); Albumin Level 3.9 g/dL (3.4-5.0); Alkaline Phosphatase 104 U/L (46-116); Anion Gap 9 mmol/L (8-16); Aspartate Amino Transferase < 10 U/L (15-37); Bilirubin,Total 0.9 mg/dL (0.00-1.00); Blood Urea Nitrogen 31 mg/dL (7-18); Calcium 10.5 mg/dL (8.5-10.1); Carbon Dioxide 29 mmol/L (21-32); Chloride 103 mmol/L (98-108); Cholesterol 200 mg/dL (0-200); Estimated Glomerular Filt Rate > 60; Glucose 94 mg/dL (70-99); HDL Direct 51 mg/dL (40-60); LDL Cholesterol Calculated 124 mg/dL (<130); Osmolality Calculated 298 mOsm/kg (285-295); Sodium 141 mmol/L (136-145); Thyroid Stimulating Hormone 1.97 uIU/mL (0.36-3.74); Total Protein 6.8 g/dL (6.4-8.2); Triglycerides 125 mg/dL (0-150)
== END 2023-01-23 10:35 | disposition home or self-care (01) ==
LOC: CHSLAB 10:36
PROVIDERS: PCP Internal Medicine; Visit Provider Internal Medicine
DX: I10 Essential (primary) hypertension (principal); E78.5 Hyperlipidemia, unspecified
CPT/HCPCS: 36415; 80053; 80061; 81003; 84443; 85025

== ENCOUNTER 2023-06-11 12:26 | Outpatient (CLI) | payer MEDICARE, MEDICAID, SELFPAY ==
--- NOTE | ~2023-06-11 | MM_ITS ---
EXAMINATION: MM screening [facility] BI w shaquille HISTORY: Screening TECHNIQUE: Craniocaudal and mediolateral oblique 3-D tomosynthesis images were obtained and synthetic 2-D images were generated. CAD analysis was submitted and interpreted. COMPARISON: Comparison to multiple prior studies sequentially, with oldest reviewed study dated 08/09. BREAST PARENCHYMAL COMPOSITION: Not dense: There are scattered areas of fibroglandular density. FINDINGS: There is no evidence of suspicious mass, calcification, or architectural distortion to sugg est malignancy in either breast. There has been no suspicious interval change. IMPRESSION: 1. No mammographic evidence of malignancy. 2. Recommend routine screening mammography in one year. BI-RADS Category 1: Negative Reviewed, dictated and finalized at location A.
== END 2023-06-11 12:27 | disposition home or self-care (01) ==
LOC: CHSIMG 12:26
PROVIDERS: PCP Internal Medicine; Visit Provider Internal Medicine
DX: Z12.31 Encounter for screening mammogram for malignant neoplasm of breast (principal)
CPT/HCPCS: 77063; 77067

== ENCOUNTER 2023-06-28 10:25 | Outpatient (CLI) | payer MEDICARE, MEDICAID, SELFPAY ==
[2023-06-28 10:50] LABS: Basophils Absolute Auto 0.08 K/mm3 (0.00-0.10); Basophils Percent Auto 1.3 % (0.0-1.0); Eosinophils Absolute Auto 0.37 K/mm3 (0.02-0.50); Eosinophils Percent Auto 5.8 % (1.0-6.0); Hematocrit 37.8 % (35.0-42.0); Hemoglobin 11.5 g/dL (11.7-13.8); Immature Granulocyte Absolute 0.05 K/mm3 (0.00-0.00); Immature Granulocyte Percent A 0.8 % (0.0-0.0); Lymphocytes Absolute Auto 1.18 K/mm3 (1.10-4.50); Lymphocytes Percent Auto 18.6 % (18.0-42.0); Mean Corpuscular HGB Conc 30.4 g/dL (32-36); Mean Corpuscular Hemoglobin 25.7 pg (27.0-31.0); Mean Corpuscular Volume 84.4 fL (78.0-102.0); Mean Platelet Volume 8.6 fl (9.2-11.8); Monocytes Absolute Auto 0.57 K/mm3 (0.10-0.90); Neutrophils Absolute Auto 4.09 K/mm3 (1.70-7.20); Neutrophils Percent Auto 64.5 % (50.0-70.0); Platelet Count Result 267 K/mm3 (150-420); Red Blood Count 4.48 M/mm3 (4.20-5.40); Red Cell Distribution Width 16.2 % (11.6-14.4); White Blood Count 6.3 K/mm3 (4.8-10.8)
[2023-06-28 11:33] LABS: Alanine Aminotransferase 28 U/L (14-59); Albumin Level 4.1 g/dL (3.4-5.0); Alkaline Phosphatase 109 U/L (46-116); Anion Gap 8 mmol/L (4-12); Aspartate Amino Transferase 13 U/L (15-37); Bilirubin,Total 1.1 mg/dL (0.00-1.00); Blood Urea Nitrogen 29 mg/dL (7-18); Carbon Dioxide 29 mmol/L (21-32); Chloride 104 mmol/L (98-108); Estimated Glomerular Filt Rate > 60; Glucose 83 mg/dL (70-99); Osmolality Calculated 296 mOsm/kg (285-295); Potassium 4.1 mmol/L (3.5-5.1); Sodium 141 mmol/L (136-145); Total Protein 6.8 g/dL (6.4-8.2)
== END 2023-06-28 10:26 | disposition home or self-care (01) ==
LOC: CHSLAB 10:29
PROVIDERS: PCP Internal Medicine; Visit Provider Internal Medicine
DX: I10 Essential (primary) hypertension (principal)
CPT/HCPCS: 36415; 80053; 85025

== ENCOUNTER 2024-02-01 09:50 | Outpatient (CLI) | payer MEDICARE, MEDICAID, SELFPAY ==
[2024-02-01 10:10] LABS: Basophils Absolute Auto 0.08 K/mm3 (0.00-0.10); Basophils Percent Auto 1.1 % (0.0-1.0); Eosinophils Absolute Auto 0.44 K/mm3 (0.02-0.50); Eosinophils Percent Auto 6.3 % (1.0-6.0); Hematocrit 35.2 % (35.0-42.0); Hemoglobin 11.3 g/dL (11.7-13.8); Immature Granulocyte Absolute 0.04 K/mm3 (0.00-0.00); Immature Granulocyte Percent A 0.6 % (0.0-0.0); Lymphocytes Absolute Auto 1.12 K/mm3 (1.10-4.50); Lymphocytes Percent Auto 15.9 % (18.0-42.0); Mean Corpuscular HGB Conc 32.1 g/dL (32-36); Mean Corpuscular Hemoglobin 26.5 pg (27.0-31.0); Mean Corpuscular Volume 82.6 fL (78.0-102.0); Mean Platelet Volume 9.1 fl (9.2-11.8); Monocytes Absolute Auto 0.74 K/mm3 (0.10-0.90); Monocytes Percent Auto 10.5 % (2.0-11.0); Neutrophils Absolute Auto 4.62 K/mm3 (1.70-7.20); Neutrophils Percent Auto 65.6 % (50.0-70.0); Platelet Count Result 268 K/mm3 (150-420); Red Blood Count 4.26 M/mm3 (4.20-5.40); Red Cell Distribution Width 16.1 % (11.6-14.4)
[2024-02-01 11:06] LABS: Alanine Aminotransferase 23 U/L (14-59); Albumin Level 3.6 g/dL (3.4-5.0); Alkaline Phosphatase 113 U/L (46-116); Anion Gap 8 mmol/L (4-12); Aspartate Amino Transferase 12 U/L (15-37); Bilirubin,Total 0.9 mg/dL (0.00-1.00); Blood Urea Nitrogen 36 mg/dL (7-18); Calcium 10.2 mg/dL (8.5-10.1); Carbon Dioxide 29 mmol/L (21-32); Chloride 106 mmol/L (98-108); Cholesterol 194 mg/dL (0-200); Estimated Glomerular Filt Rate 59; Glucose 90 mg/dL (70-99); HDL Direct 49 mg/dL (40-60); LDL Cholesterol Calculated 126 mg/dL (<130); Osmolality Calculated 304 mOsm/kg (285-295); Potassium 4.8 mmol/L (3.5-5.1); Sodium 143 mmol/L (136-145); Thyroid Stimulating Hormone 1.87 uIU/mL (0.36-3.74); Total Protein 6.5 g/dL (6.4-8.2); Triglycerides 97 mg/dL (0-150)
[2024-02-01 13:38] LABS: Add Urine Microscopic? NO; Appearance Urine Clear (Clear); Bilirubin Urine Negative (Negative); Blood Urine Negative (Negative); Color Urine Light Yellow (Yellow); Glucose Urine UA Negative (Negative); Ketones Urine Negative (Negative); Leukocyte Esterase Ur Negative (Negative); Nitrate Urine Negative (Negative); Protein Urine Negative (Negative); Specific Grav Ur 1.025 (1.010-1.020); Urobilinogen Urine 0.2 mg/dL (0.2-1.0)
== END 2024-02-01 09:51 | disposition home or self-care (01) ==
LOC: CHSLAB 09:54
PROVIDERS: PCP Internal Medicine; Visit Provider Internal Medicine
DX: I10 Essential (primary) hypertension (principal); E78.5 Hyperlipidemia, unspecified; R82.90 Unspecified abnormal findings in urine
CPT/HCPCS: 36415; 80053; 80061; 81003; 84443; 85025; 87086

== ENCOUNTER 2024-04-09 10:02 | Outpatient (RCR) | payer MEDICARE, MEDICAID, SELFPAY ==
--- NOTE | 2024-04-09 12:06 | OPREHPOC ---
Outpatient Therapy Plan of Care This is a Multidisciplinary Plan of Care that may contain components documented by all disciplines (PT, OT, and ST.) PT Problem 1 PT Problem #1 Knowledge Deficit PT Goal 1 Goal / Goal Update The patient will be independent in a home exercise program. Target Visit 4 PT Problem 2 PT Problem #2 Pain PT Goal 1 Goal / Goal Update The patient will report no greater than 3/10 right shoulder pain with reaching overhead and behind her back. Target Visit 12 PT Problem 3 PT Problem #3 Impaired Functional Mobility PT Goal 1 Goal / Goal Update The patient will demonstrate 30% or less self perceived disability per the Quick DASH questionnaire. Target Visit 12 PT Problem 4 PT Problem #4 Impaired Range of Motion PT Goal 1 Goal / Goal Update The patient will demonstrate 160 degrees for right shoulder flexion to improve overhead reaching ability. The patient will demonstrate functional IR to T7 to improve ability to reach behind the back for bathing. Target Visit 12 PT Problem 5 PT Problem #5 Impaired Strength PT Goal 1 Goal / Goal Update The patient will demonstrate 4/5 or greater strength in the right shoulder to improve lifting and carrying ability. Target Visit 12
--- NOTE | 2024-04-09 12:07 | PTOPEVAL1 ---
Assessment and note entered by Nicol Silva, PT Evaluation Information Assessment Status Evaluation ICD-10 Condition Codes (PT) Pain in right shoulder M25.511 Other ICD-10 Condition Codes ( M19.011, M75.21, M75.81 PT) Onset 04/02/24 Subjective Information Cyndi Pearce reports she started having right shoulder pain a couple months ago and has progressively worsened. She reports she had been on a ladder painting windows prior to the onset of pain. She thinks she may have been gripping the ladder a lot when going up and down. She saw her technical service specialist on 04/02/24 and had x-rays and an exam. She was diagnosed with biceps tendonitis and AC joint osteoarthritis. She has constant pain that is worse with use. She occasionally has stabbing pain in the front of the shoulder. She notes pain travels down to the elbow and sometimes she has swelling in her hand that affects her ability to write. She notes increased pain with reaching behind her back, reaching overhead, and pressing down through the right UE. 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 She received a cortisone injection on 04/02/24 and an oral anti-inflammatory medication. She notes the sharp pain has been less since starting medication. Reported Pain Level Pain Score 6: Self Report Assessment PT Clinical Summary Cyndi Pearce presents with right shoulder pain with an onset after painting outdoor windows on a ladder. She has been diagnosed with AC joint osteoarthritis, bicep tendonitis, and rotator cuff tendonitis. She has difficulty with reaching overhead, reaching behind her back, lifting, and pushing. She objectively demonstrates decreased and painful right shoulder AROM, decreased right shoulder strength, impaired shoulder posture, tenderness on the long head of the bicep tendon and teres minor, and positive special tests consistent with shoulder impingement and tendonitis. She will benefit from skilled PT to address these limitations. Plan of Care Interventions Electrical Stimulation,Hot Pack/Cold Pack,Manual Therapy,Neuro Re-education,Patient/Caregiver Education,Therapeutic Activities,Therapeutic Exercise PT Services Indicated Yes Treatment Frequency and 2 times per week for 12 visits Duration These treatments will address the objective and functional deficits as defined above. The patient will be advanced safely and appropriately in order for the patient to progress towards his/her prior level of function. Additional exercises will be introduced and as well as a comprehensive home exercise program upon discharge, if needed, ?to ensure carryover of functional gains achieved in the clinic. This treatment plan has been reviewed and agreement upon by the patient.
[2024-05-09 09:50] VITALS: BP_SYST 150
--- NOTE | 2024-05-09 10:45 | PTOPPROG ---
Assessment and note entered by JT File, PT Evaluation Information Assessment Status Progress ICD-10 Condition Codes (PT) Pain in right shoulder M25.511 Other ICD-10 Condition Codes ( M19.011, M75.21, M75.81 PT) Onset 04/02/24 Subjective Information patient reports her shoulder really hurts today. she reports she had to scrape the ice off her car windshield to get here, and this increased her pain. she reports other than her increased pain from scraping ice this morning, pressing down and lifting still increase her pain in the R shoulder. she reports holding/gripping objects to sew and quilt are difficult as well. she reports she does not drop things as much as she used to either. she reports the pain runs all the way down to her fingers. Assessment PT Clinical Summary mrs. iraheta presents to skilled PT for her 10th skilled therapy visit today. she presents with increased pain and symptoms today due to a flare up from scaping the ice of her car windshield this morning. in addition to her R shoulder symptoms, she also displays possible cervical radiculopathy symptoms leading down the back of the arm to the middle fingers of the R hand. cervical compression and distraction are negative, and shoulder abduction test is inconclusive today. she does display sysmptoms into the distal triceps and to the middle finger of the R hand today. continued skilled PT is indicated to improve patients objective/functional deficits and take her out to her return/follow up with referring MD. Plan of Care Interventions Electrical Stimulation,Hot Pack/Cold Pack,Manual Therapy,Neuro Re-education,Patient/Caregiver Education,Therapeutic Activities,Therapeutic Exercise PT Services Indicated Yes Treatment Frequency and continue skilled PT 2x weekly for 4 more visits Duration These treatments will address the objective and functional deficits as defined above. The patient will be advanced safely and appropriately in order for the patient to progress towards his/her prior level of function. Additional exercises will be introduced and as well as a comprehensive home exercise program upon discharge, if needed, ?to ensure carryover of functional gains achieved in the clinic. This treatment plan has been reviewed and agreement upon by the patient.
--- NOTE | 2024-05-21 11:48 | OPREHPOC ---
Outpatient Therapy Plan of Care This is a Multidisciplinary Plan of Care that may contain components documented by all disciplines (PT, OT, and ST.) PT Problem 1 PT Problem #1 Knowledge Deficit PT Goal 1 Goal / Goal Update The patient will be independent in a home exercise program. Target Visit 4 Progress Met PT Problem 2 PT Problem #2 Pain PT Goal 1 Goal / Goal Update The patient will report no greater than 3/10 right shoulder pain with reaching overhead and behind her back. Target Visit 12 Progress Not Met PT Problem 3 PT Problem #3 Impaired Functional Mobility PT Goal 1 Goal / Goal Update The patient will demonstrate 30% or less self perceived disability per the Quick DASH questionnaire. Target Visit 12 Progress Not Met PT Problem 4 PT Problem #4 Impaired Range of Motion PT Goal 1 Goal / Goal Update The patient will demonstrate 160 degrees for right shoulder flexion to improve overhead reaching ability. The patient will demonstrate functional IR to T7 to improve ability to reach behind the back for bathing. Target Visit 12 Progress Met PT Problem 5 PT Problem #5 Impaired Strength PT Goal 1 Goal / Goal Update The patient will demonstrate 4/5 or greater strength in the right shoulder to improve lifting and carrying ability. Target Visit 12 Progress Not Met
--- NOTE | 2024-05-21 11:48 | PTOPREEVAL ---
Assessment and note entered by JT File, PT Evaluation Information Assessment Status Re-evaluation ICD-10 Condition Codes (PT) Pain in right shoulder M25.511 Other ICD-10 Condition Codes ( M19.011, M75.21, M75.81 PT) Onset 04/02/24 Subjective Information patient reports she continues to have pain in the R anterior shoulder. she reports her pain is increased with palpation over the front of the shoulder, pushing down with the R arm, and reaching behind her back. she reports she has a follow up with the referring docs office. she reports her symptoms have been more flared up lately. she reports it does involve her dominant arm and it is hard not to use this arm. Reported Pain Level Pain Score 4: Self Report Assessment PT Clinical Summary mrs. iraheta presents to skilled PT services for her 14th skilled PT visit for R shoulder pain. patient continues to have pain and tenderness in the anterior R shoulder. her symptoms are elicited with palpation, muscle testing, and special testing of the R shoulder. she is positive with full and empty can, obriens test, and biceps load test. she will benefit from returning to her referring care provider for follow up and potential MRI of the R shoulder. we will hold skilled PT at this time. she will continue with HEP while awaiting follow up. Plan of Care Interventions Electrical Stimulation,Hot Pack/Cold Pack,Manual Therapy,Neuro Re-education,Patient/Caregiver Education,Therapeutic Activities,Therapeutic Exercise PT Services Indicated Yes Treatment Frequency and hold therapy. follow up with referring provider. Duration These treatments will address the objective and functional deficits as defined above. The patient will be advanced safely and appropriately in order for the patient to progress towards his/her prior level of function. Additional exercises will be introduced and as well as a comprehensive home exercise program upon discharge, if needed, ?to ensure carryover of functional gains achieved in the clinic. This treatment plan has been reviewed and agreement upon by the patient.
--- NOTE | 2024-05-21 11:52 | PCPTNOTE ---
Mrs. Pearce has attended 14 skilled PT visits for her R anterior shoulder pain. She continues to be tender to palpation along the biceps long head tendon in the bicipital groove. During her therapy treatments, we have performed passive/active assisted/active rom exercise, strengthening exercise (including eccentric focused strengthening), neuromuscular re-education exercise, modalities, and dry needling with no significant change or improvement. At this time, she would likely benefit from an MRI of the R shoulder to determine any surgical needs. I have placed her on hold from skilled PT at this time to await further instructions or next steps from your office. Thank you for your confidence in treating Mrs. Pearce. Please feel free to reach out with any further questions or needs. Sincerely, JT File, DPT [phone]
--- NOTE | 2024-07-01 10:56 | PTOPDC ---
Assessment and note entered by Nicol Silva, PT Evaluation Information Assessment Status Discharge - Pt Not Present ICD-10 Condition Codes (PT) Pain in right shoulder M25.511 Other ICD-10 Condition Codes ( M19.011, M75.21, M75.81 PT) Onset 04/02/24 Subjective Information Pt called to say she is having surgery on 06/06/24. Assessment PT Clinical Summary Cyndi Pearce completed 14 skilled PT visits for right shoulder pain and ultimately had surgery on 06/06/24. She is discharged at this time . Plan of Care PT Services Indicated No
== END 2024-05-21 20:00 | disposition home or self-care (01) ==
LOC: CHSPT 10:02
PROVIDERS: Visit Provider Physician Assistant
DX: M19.011 Primary osteoarthritis, right shoulder (principal); M75.21 Bicipital tendinitis, right shoulder; M75.81 Other shoulder lesions, right shoulder
CPT/HCPCS: 97014; 97110; 97140; 97161; G0283

== ENCOUNTER 2024-04-10 15:03 | Outpatient (CLI) | payer MEDICARE, MEDICAID, SELFPAY ==
--- NOTE | 2024-04-10 15:09 | ECHO_ITS ---
Patient Info Name: Cyndi Pearce Age: 69 years : 1955 Gender: Female Ht: 63 in Wt: 235 lbs BSA: 2.23 m2 HR: 66 bpm BP: 135 / 75 mmHg Technical Quality: Good Exam Date: 04/10/2024 4:50 PM Exam Location: Echo Lab Patient Status: Outpatient Admit Date: 04/10/2024 Staff Ordering Physician: Peterson Cartwright MD Wrist Liner: Evette Dumont RDCS Attending Provider: Peterson Cartwright MD Exam Type: CA echo doppler color flow Study Info Complete two-dimensional, color flow and Doppler transthoracic echocardiogram is performed. Summary 1. Complete two-dimensional, color flow and Doppler transthoracic echocardiogram is performed. 2. Left ventricular chamber dimension is normal. 3. Left ventricular systolic function is normal, estimated at 60-65%. 4. The left ventricular diastolic function is grade I diastolic dysfunction. 5. E/e' 6 is not elevated. 6. Left atrial chamber dimension is mildly enlarged. 7. There is mild aortic valve sclerosis. 8. No pulmonary hypertension, estimated pulmonary arterial systolic pressure is 34 mmHg. Left Ventricle E/e' 6 is not elevated. Left ventricular chamber dimension is normal. Left ventricular systolic function is normal, estimated at 60-65%. The left ventricular diastolic function is grade I diastolic dysfunction. Right Ventricle Right ventricular systolic function is normal and with normal TAPSE 2.3 cm. Right ventricular chamber dimension is normal. Left Atria Left atrial chamber dimension is mildly enlarged. Right Atria Right atrial chamber dimension is normal. Aortic Valve The aortic valve is trileaflet. There is mild aortic valve sclerosis. There is no aortic valve stenosis. There is no aortic valve regurgitation. Pulmonic Valve There is no pulmonic regurgitation. Mitral Valve There is no mitral valve stenosis. There is no mitral valve regurgitation. Tricuspid Valve There is no tricuspid valve regurgitation. No pulmonary hypertension, estimated pulmonary arterial systolic pressure is 34 mmHg. Pericardium/Pleural There is no pericardial effusion. Inferior Vena Cava Normal inferior vena cava with >50% collapse upon inspiration consistent with normal right atrial pressure, 5 mmHg. Aorta The aortic root size at the sinus of Valsalva is normal. Left Ventricular Outflow Tract Name Value Normal LVOT 2D LVOT Diameter 2.0 cm LVOT Doppler LVOT Peak Velocity 149 cm/s LVOT Peak Gradient 9 mmHg LVOT Mean Gradient 5 mmHg LVOT VTI 31 cm LVOT VTI/AV VTI Ratio 0.8 LVOT Stroke Volume 97 ml Pulmonic Valve Name Value Normal PV Doppler PV Peak Velocity 90 cm/s PV Peak Gradient 3 mmHg PV Regurgitation Doppler WA Peak End Diastolic Velocity 97 cm/s Mitral Valve Name Value Normal MV Doppler MV Peak Gradient 4 mmHg MV Mean Gradient 2 mmHg MV Decel Parker 462 cm/s2 MV PHT 57 ms MV Area (PHT) 3.8 cm2 4.0-5.0 MV Area (Cont Eq VTI) 3.4 cm2 MV Diastolic Function MV E Peak Velocity 91 cm/s MV A Peak Velocity 99 cm/s MV E/A 0.9 MV Decel Time 197 ms Tricuspid Valve Name Value Normal TV Regurgitation Doppler TR Peak Velocity 272 cm/s TR Peak Gradient 29 mmHg Estimated PAP/RSVP RA Pressure 5 mmHg <=5 PA Systolic Pressure 34 mmHg <36 RV Systolic Pressure 34 mmHg <36 Aortic Valve Name Value Normal AV Doppler AV Peak Velocity 189 cm/s AV Peak Gradient 13 mmHg AV Mean Gradient 7 mmHg AV VTI 41 cm AV Area (Cont Eq VTI) 2.4 cm2 >=3.0 AV Area (Cont Eq Cedric) 2.5 cm2 AV V1/V2 Ratio 0.79 AV Regurgitation 2D LVOT Area 3.2 cm2 Ventricles Name Value Normal LV Dimensions 2D/MM IVS Diastolic Thickness (2D) 0.8 cm 0.6-1.0 LVID Diastole (2D) 4.8 cm 3.8-5.2 LVIW Diastolic Thickness (2D) 0.8 cm 0.6-0.9 LVID Systole (2D) 3.1 cm 2.2-3.5 LVOT Diameter 2.0 cm LV Mass (2D Cubed) 130.68 g 67.00-162.00 LV Mass Index (2D Cubed) 58 g/m2 43-95 Relative Wall Thickness (2D) 0.35 LV Fractional Shortening/Ejection Fraction 2D/MM LV Fractional Shortening (2D) 35 % 27-45 LV EF (2D Teicholz) 65 % 54-74 LV Diastolic Volume (4C MOD) 79 ml LV EF (4C MOD) 50 % LV Diastolic Length (4C) 7.1 cm LV Systolic Length (4C) 6.9 cm LV Stroke Volume (4C MOD) 33 ml Atria Name Value Normal LA Dimensions LA Volume (4C A-L) 66 ml RA Dimensions RA Area (4C) 15.3 cm2 <=18.0 Report Signatures
== END 2024-04-10 15:04 | disposition home or self-care (01) ==
LOC: CHSIMG 15:05
PROVIDERS: PCP Internal Medicine; Visit Provider Internal Medicine
DX: R01.1 Cardiac murmur, unspecified (principal); M85.88 Other specified disorders of bone density and structure, other site; I70.0 Atherosclerosis of aorta; I51.9 Heart disease, unspecified
CPT/HCPCS: 93306

== ENCOUNTER 2024-04-23 12:09 | Outpatient (CLI) | payer MEDICARE, MEDICAID, SELFPAY ==
--- NOTE | ~2024-04-23 | DEXA_ITS ---
Bone Density Report Name: JUSTIN BLANKENSHIP Age: 69 Sex: Female Ethnicity: White Date of : 1955 Indication: postmenopausal; screening for osteoporosis; height loss; hysterectomy; Referring Provider: Peterson Cartwright Study: Bone densitometry was performed. Exam Date: April 23, 2024 Accession number: [id number] Bone Density: Region BMD T-score Z-score Classification AP Spine(L1-L4) 1.124 0.7 2.7 Normal Femoral Neck (Left) 0.684 -1.5 0.2 Osteopenia Total Hip (Left) 0.893 -0.4 1.0 Normal Femoral Neck (Right) 0.672 -1.6 0.1 Osteopenia Total Hip (Right) 0.838 -0.9 0.5 Normal Femoral Neck Mean 0.678 -1.5 0.1 Osteopenia Total Hip Mean 0.866 -0.6 0.8 Normal World Health Organization criteria for BMD impression classify patients as: Normal (T-score at or above -1.0), Osteopenia (T-score between -1.0 and -2.5), or Osteoporosis (T-score at or below -2.5). 10-year Fracture Risk(1): Major Osteoporotic Fracture 8.7% Hip Fracture 1.1% Reported Risk Factors: [place] (), Neck BMD=0.672, BMI=40.9 (1) FRAX(R) Version 3.08. Fracture probability calculated for an untreated patient. Fracture probability may be lower if the patient has received treatment. Previous Exams: Region Exam Age BMD T-score BMD Change BMD Change Date g/cm2 vs Baseline vs Previous AP Spine (L1-L4) 04/23/2024 69 1.124 0.7 -0.078 (-6.5%) -0.078 (-6.5%) 09/14/2021 66 1.201 1.4 Total Hip(Left) 04/23/2024 69 0.893 -0.4 0.060 (7.1%)# 0.060 (7.1%)# 09/14/2021 66 0.833 -0.9 Total Hip(Right) 04/23/2024 69 0.838 -0.9 0.014 (1.7%)# 0.014 (1.7%)# 09/14/2021 66 0.824 -1.0 *Denotes significance at 95% confidence level, LSC for AP Spine = 0.022 g/cm2, LSC for Total Hip = 0.027 g/cm2 # Denotes dissimilar scan types or analysis methods Clinical Information Provided by Patient: Has used the following medications: Vitamin D, Calcium Has the following medical conditions: Hysterectomy Patient maximum height was 65.5 Menopause Age: 46 No regular weight bearing exercise Drinks caffeinated beverages Onset of menses at age 10 Number of children 1 Impression: The patient has low bone mass, based on the Right Femoral Neck T-score. No significant bone loss was observed. Discussion: BONE DENSITY IS LOW AT ONE OR MORE SKELETAL SITES. This patient's lowest T-score is low at one or more skeletal sites. It meets the World Health Organization's (WHO) criteria for ?low bone mass? (T-score between -1.0 and -2.5). The patient's 10-year risk of fracture as calculated by FRAX is less than the threshold where pharmacological therapy is recommended by the National Osteoporosis Foundation (NOF). However, all treatment decisions require clinical judgment and consideration of individual patient factors, including patient preferences, comorbidities, previous drug use, risk factors not captured in the FRAX model (e.g., frailty, falls, vitamin D deficiency, increased bone turnover, interval significant decline in bone density) and possible under or overestimation of fracture risk by FRAX. The patient should follow a healthful lifestyle (good nutrition with adequate calcium and vitamin D, and appropriate weight-bearing exercise). Follow-Up: Consider repeating this study in 2 to 3 years to reassess this patient's status, or sooner if there is some new clinical indication. Reported by: KALIN on 04/23/2024 12:38:00 PM. Reviewed, dictated and finalized at location A.
--- OUTSIDE RECORDS SUMMARY | 2024-04-23 13:10 | XMS_ITS | Referral Summary ---
Author Organization [facility] Medical Office Building B Address [address] [place] [address] Care Team Providers Care Production Grader Name Role Phone Peterson Cartwright MD Primary Care Provider [phone] Philipp Almaguer NP Unavailable [phone] Encounters Date Type Department Care Team Description 04/02/2024 7:35 AM DESIGN PRINTING MACHINE SETTER - 04/02/2024 11:59 PM DESIGN PRINTING MACHINE SETTER Hospital Encounter [facility] Orthopedics and Sports Medicine [address] [place] [address] [address], [place] [address] Discharge Disposition: Discharge to home or self care 04/02/2024 8:15 AM DESIGN PRINTING MACHINE SETTER Office Visit [facility] Orthopedics and Sports Medicine [address] [place] [phone] Fang Galeas PA Right rotator cuff tendonitis (Primary Dx); Osteoarthritis of right AC (acromioclavicular) joint; Spasm of right trapezius muscle; Biceps tendonitis, right from Last 3 Months Allergies Active Allergy Reactions Criticality Noted Date Comments Codeine Anaphylaxis High 02/12/2018 Lidocaine Swelling Medium 06/24/2020 Morphine Swelling Medium 2020 Progesterone Other (See comments) Low 02/12/2018 twitching Promethazine Anxiety Low 2020 Sulfa (Sulfonamide Antibiotics) Itching,Rash Medium 02/12/2018 Tetanus And Diphther. Tox (Pf) Swelling Medium 2020 Tetanus Antitoxin Fever,Swelling Medium 02/12/2018 Medications hydroCHLOROthia zide (MICROZIDE) 12.5 mg capsule Take 2 capsules (25 mg total) by mouth daily Active irbesartan (AVAPRO) 300 mg tablet Take 1 tablet (300 mg total) by mouth nightly Active felodipine (PLENDIL) 5 mg 24 hr tablet Take 1 tablet (5 mg total) by mouth nightly Active calcium-vits H4-Y-N6-mineral s 166.75 mg- 166.75 unit capsule Take by mouth daily Active acetaminophen 325 mg capsule Take by mouth 3 (three) times a day as needed Active cyanocobalamin, vitamin B-12, (VITAMIN B-12 ORAL) Take by mouth daily Active senna-docusate (PERICOLACE) 8.6-50 mg 1-2 times daily as needed for constipation 60 tablet 1 1 Active amLODIPine (NORVASC) 5 mg tablet Take 1 tablet (5 mg total) by mouth daily 2 Active celecoxib (CeleBREX) 200 mg capsule Take 1 capsule (200 mg total) by mouth 2 (two) times a day 60 capsule 5 05/02/19 25 Active Hospital, Clinic, or Other Facility Administered Medication Ordered Dose Route Frequency Start Date End Date Status methylPREDNISolone acetate (DEPO-medrol) injection 80 mgIndications:Oste oarthritis of right AC (acromioclavicular ) joint,Biceps tendonitis, right,Right rotator cuff tendonitis 80 mg intra-artic One-Time Injection 04/02/2024 04/02/2024 Ended Active Problems Problem Noted Date Diagnosed Date Acute meniscal tear of right knee 02/12/2018 Osteoarthritis of right knee 02/12/2018 Social History Tobacco Use Types Packs/Day Years Used Date Smoking Tobacco: Never Alcohol Use Standard Drinks/Week Comments Yes 0 (1 standard drink = 0.6 oz pur e alcohol) AUDIT-C Answer Date Recorded Q1: How often do you have a drink containing alc ohol? Monthly or less 12/21/2020 Average Number of Drinks Not on file 021 Frequency of Binge Drinking Not on file 11/25 Comments Unknown Sex and Gender Information Value Date Recorded Sex Assigned at Not on file Legal Sex Female 8:15 PM DESIGN PRINTING MACHINE SETTER Gender Identity Not on file Sexual Orientation Not on file Last Filed Vital Signs Vital Sign Reading Time Taken Comments Blood Pressure 156/81 02/10/2022 2:12 PM DESIGN PRINTING MACHINE SETTER Pulse 59 02/10/2022 2:12 PM DESIGN PRINTING MACHINE SETTER Temperature 36.4 ??C (97.6 ??F) 12/22/2020 11:20 AM C DT Respiratory Rate 20 12/22/2020 11:20 AM CDT Oxygen Saturation 98% 12/22/2020 11:20 AM CDT Inhaled Oxygen Concentration - - Weight 103.4 kg (228 lb) 04/02/2024 8:26 AM DESIGN PRINTING MACHINE SETTER Height 158.8 cm (5' 2.5 ) 04/02/2024 8:26 AM DESIGN PRINTING MACHINE SETTER Body Mass Index 41.04 04/02/2024 8:26 AM DESIGN PRINTING MACHINE SETTER Plan of Treatment Not on file Medical Devices Implanted Type Area Highway Engineering Teacher Device Identifier Shelf Expiration Date Model / Serial / Lot [employer] 6195-1-001 Cement Bone Simplex Gentamicin High Viscosity 40gm - [id number] Implanted:Qty: 1 on 12/21/2020 by Evens Dowell MD at [facility] Left: Knee [employer] 02/22/2022 6195-1-001 / / [id number] [employer] 6195-1-001 Cement Bone Simplex Gentamicin High Viscosity 40gm - [id number] Implanted:Qty: 1 on 12/21/2020 by Evens Dowell MD at [facility] Left: Knee [employer] 02/22/2022 6195-1-001 / / [id number] [employer] [id number] Attune S+ Cement Fix Bearing Knee 5 Baseplate Tibial - [id number] Implanted:Qty: 1 on 12/21/2020 by Evens Dowell MD at [facility] Left: Knee [employer] 10/23/2030 [id number] / / [id number] [employer] [id number] Attune Cruciate Retain Cementless Knee Left 5 Component Femoral - [id number] Implanted:Qty: 1 on 12/21/2020 by Evens Dowell MD at [facility] Left: Knee [employer] 04/25/2030 [id number] / / [id number] [employer] [id number] Attune 6mm Cruciate Retaining Fix Bearing Knee 5 Insert Tibial - [id number] Implanted:Qty: 1 on 12/21/2020 by Evens Dowell MD at [facility] Left: Knee [employer] 09/22/2025 [id number] / / [id number] Procedures Procedure Name Priority Date/Time Associated Diagnosis Comments XR SHOULDER RIGHT 2 OR MORE VIEWS Routine 04/02/2024 8:20 AM DESIGN PRINTING MACHINE SETTER Osteoarthritis of right AC (acromioclavicular ) joint CT ARTHROCENTESIS ASPIR&/INJ MAJOR JT/BURSA W/O US Routine 04/02/2024 8:15 AM DESIGN PRINTING MACHINE SETTER Osteoarthritis of right AC (acromioclavicular ) joint Biceps tendonitis, right Right rotator cuff tendonitis from Last 3 Months Results * XR Shoulder Right 2 or More Views (04/02/2024 8:20 AM DESIGN PRINTING MACHINE SETTER) Anatomical Region Laterality Modality Upper Extremities, Shoulder Right Digi micaela Radiography Narrative 04/02/2024 11:06 AM DESIGN PRINTING MACHINE SETTER Views of the right shoulder reviewed interpreted today. ??No evidence of fracture dislocation. ??Advanced degenerative changes noted at AC joint with yucn-tm-wcre changes subchondral sclerosis subacromial spurring. ?? Glenohumeral joint space well-maintained. ??There is cervical hardware noted from previous C-spine surgery without loosening noted. us Fang RUTH IMG XR PROCEDURES Natalia l Result * CT ARTHROCENTESIS ASPIR&/INJ MAJOR JT/BURSA W/O US (04/02/2024 8:15 AM DESIGN PRINTING MACHINE SETTER) Narrative Fang Galeas PA - 04/02/2024 8:15 AM DESIGN PRINTING MACHINE SETTER Fang Galeas PA ? 04/02/2024 11:13 AM Large Joint (Hip, Knee, Shoulder) Injection: R subacromial bursa Performed by: Fang Galeas PA Authorized by: Fang Galeas PA ?? Large Joint Injection/Aspiration: ??Consent Given by: ??Patient ??Site marked: the procedure site was marked ?Timeout: prior to procedure the correct patient, procedure, and site was verified ?Verbal consent obtained: Yes ?? Supporting Documentation: ??Indications: ??Pain Procedure Details: ??Location: ??Shoulder ??Site: ??R subacromial bursa ??Prep: patient was prepped and draped in usual sterile fashion ?Prep: patient was prepped using a clean technique ?Needle Size: ??22 G ??Approach: ??Posterior ??Ultrasound guided: No ?Fluroscopic guidance: No ?Medications: ??80 mg methylPREDNISolone acetate 80 mg/mL ??Patient tolerance: ??Patient tolerated the procedure well with no immediate complications Fang RUTH IN CLINIC/BEDSIDE SO [facility]ATE Final Result from Last 3 Months Insurance MEDICARE [facility] IDPA Advance Directives For more information, please contact: [phone] * Full Code (Latest Code Status on File) Date Activated Date Inactivated Comments 12/21/2020 11:54 AM 12/22/2020 7:54 PM Care Teams Production Grader Relationship Specialty Start Date End Date Peterson Cartwright MD PCP - General Internal Medicine 01/16/20 Philipp Almaguer NP [address] [place] [address] Nurse Practitioner Nurse Practitioner 12/22/20
--- OUTSIDE RECORDS SUMMARY | 2024-04-23 13:11 | XMS_ITS | Clinical Summary ---
Author Organization [facility] [employer] Address [address] [place] [address] Care Team Providers Care Salvager Name Role Phone Peterson Cartwright MD Primary Care Provider [phone] Source Comments [facility],non-owned Affiliates and Associated Physician Practices is amultiple site organization consisting of ambulatory clinics and hospital sitesin [place], [place], [place] and [place]. This disclosure is being madepursuant to the Care Everywhere program and may not contain all information available regarding this patient. Last updated 17.[facility] [employer] Allergies Active Allergy Reactions Criticality Noted Date Comments Codeine Anaphylaxis High 02/12/2018 Progesterone Other 02/12/2018 twitching Sulfa Drugs Rash,Itching Medium 02/12/2018 Tetanus Antitoxin Swelling,Fever 02/12/2018 Medications * Be aware that medications may not be up to date on this document. Alwaysverify current medications with the patient. Medication Sig Dispensed Refills Start Date End Date Status felodipine CR 24hr (PLENDIL) 5 MG tablet 02/04/2018 Active losartan-hydroCHLOROthiazide (HYZAAR) 100-25 MG tablet 02/10/2018 Active Acetaminophen (TYLENOL) 325 MG CAPS Active Calcium Carb-Cholecalciferol (CALCIUM + D3 PO) Active Active Problems Problem Noted Date Diagnosed Date Osteoarthritis of right knee 02/12/2018 Acute meniscal tear of right knee 02/12/2018 Social History Tobacco Use Types Packs/Day Years Used Date Smoking Tobacco: Never Smokeless Tobacco: Never Sex and Gender Information Value Date Recorded Sex Assigned at Not on file Gender Identity Not on file Sexual Orientation Not on file Plan of Treatment Health Maintenance Due Date Last Done Comments BONE DENSITY TESTING 1955 COLOGUARD (AGES 45-75) - COL ON CA SCREENING 1956 COLON MONITORING 1956 COLONOSCOPY - COLON CA SCREENING 1956 CT COLONOGRAPHY - COLON CA SCREENING 1955 Colorectal Cancer Screening 1956 FIT - COLON CA SCREENING 1956 FLEX SIG - COLON CA SCREENING 1956 LIPID TESTING 1955 MAMMOGRAM 1955 MEDICARE AWV ? 12 MONTHS 1955 HEPATITIS C SCREENING 02/01/1974 DTAP/TDAP/TD VACCINES (1 - Tdap) 02/05/1975 PNEUMOCOCCAL VACCINE 50+ (1 of 1 - PCV) 02/05/2006 ZOSTER VACCINE (1 of 2) 02/05/2006 COVID-19 VACCINE (1 - 2023-2 5 season) 2023 INFLUENZA VACCINE (#1) 2023 DEPRESSION SCREENING 03/26/2024 Respiratory Syncytial Virus (RSV) Vaccine Pt: or over 60 yrs (1 - 1-dose 75+ series) 02/05/2031 HEPATITIS B VACCINE Aged Out No longe r eligible based on patient's age to complete this topic HIB VACCINE Aged Out No longer eligi ble based on patient's age to complete this topic HPV VACCINE Aged Out No longer eligi ble based on patient's age to complete this topic MENINGOCOCCAL (Group B) VACCINE Aged Out No longer eligible based on patient's age to complete this topic MENINGOCOCCAL VACCINE Aged Out No saida kenzie eligible based on patient's age to complete this topic Care Teams Salvager Relationship Specialty Start Date End Date Peterson Cartwright MD [address] [place] [address] PCP - General 02/06/18
--- OUTSIDE RECORDS SUMMARY | 2024-04-23 13:11 | XMS_ITS | Clinical Summary ---
Author Organization [facility] Medical Office Building B Address [address] [place] [address] Care Team Providers Care Devulcanizer Charger Name Role Phone Peterson Cartwright MD Primary Care Provider [phone] Philipp Almaguer TENANT SELECTOR Unavailable [phone] Allergies Active Allergy Reactions Criticality Noted Date [...] mg total) by mouth nightly Active calcium-vits T9-Y-R3-mineral s 166.75 mg- 166.75 unit capsule Take [...] knee 02/12/2018 Osteoarthritis of right knee 02/12/2018 Encounters Date Type Department Care Team Description 04/02/2024 8:15 AM TRUCK TECHNICIAN Office Visit [facility] Orthopedics and Sports Medicine [address] [place] [phone] Fang Galeas PA Right rotator cuff tendonitis (Primary Dx); Osteoarthritis of right AC (acromioclavicular) joint; Spasm of right trapezius muscle; Biceps tendonitis, right 04/02/2024 7:35 AM TRUCK TECHNICIAN - 04/02/2024 11:59 PM TRUCK TECHNICIAN Hospital Encounter [facility] Orthopedics and Sports Medicine [address] [place] [address] [place] [phone] Discharge Disposition: Discharge to home or self care from Last 3 Months Surgical History Surgery Date Site/Laterality Comments HYSTERECTOMY TONSILLECTOMY CYST REMOVAL Left CERVICAL FUSION 5-6 Medical History Medical History Date Comments Hypertension Social History Tobacco Use Types Packs/Day Years [...] on file Legal Sex Female 8:15 PM TRUCK TECHNICIAN Gender Identity Not on file Sexual Orientation Not on file Obstetrics History Last Filed Vital Signs Vital Sign Reading Time Taken Comments Blood Pressure 156/81 02/10/2022 2:12 PM TRUCK TECHNICIAN Pulse 59 02/10/2022 2:12 PM TRUCK TECHNICIAN Temperature 36.4 ??C (97.6 ??F) 12/22/2020 11:20 AM C DT Respiratory Rate 20 12/22/2020 11:20 AM CDT Oxygen Saturation 98% 12/22/2020 11:20 AM CDT Inhaled Oxygen Concentration - - Weight 103.4 kg (228 lb) 04/02/2024 8:26 AM TRUCK TECHNICIAN Height 158.8 cm (5' 2.5 ) 04/02/2024 8:26 AM TRUCK TECHNICIAN Body Mass Index 41.04 04/02/2024 8:26 AM TRUCK TECHNICIAN Plan of Treatment Health Maintenance Due Date Last Done Comments Breast Cancer Screening-Mammogram 1955 Colon Cancer Screening-Colonoscopy 1956 Depression Screening 1956 Hepatitis C Screening 1956 Osteoporosis Screening-Bone Density Scan 1956 DTaP/Tdap/Td Vaccine (1 - Tdap) 02/05/1967 Hepatitis B Screening 02/05/1974 Zoster Vaccine (1 of 2) 02/05/2006 Pneumococcal vaccine 65+ (1 of 1 - PCV) 02/05/2021 Well Visit 65+ 02/05/2021 Fall Risk Assessment 12/22/2021 12/22/2020 Covid-19 Vaccine (3 - season) 2023, 11/01/2020 Influenza Vaccine (#1) 2023 Medical Devices Implanted Type Area Nurse Educator Device Identifier Shelf Expiration Date Model / Serial / Lot [employer] 6195-1-001 Cement Bone Simplex Gentamicin High Viscosity 40gm - [id number] Implanted:Qty: 1 on 12/21/2020 by Evens Dowell MD at [facility] Left: Knee [employer] 02/22/2022 6195-1-001 / / [id number] [employer] 6195-1-001 Cement Bone Simplex Gentamicin High Viscosity 40gm - [id number] Implanted:Qty: 1 on 12/21/2020 by Evens Dowell MD at [facility] Left: Knee [employer] 02/22/2022 6195-1-001 / / [id number] [employer] [id number] Attune S+ Cement Fix Bearing Knee 5 Baseplate Tibial - [id number] Implanted:Qty: 1 on 12/21/2020 by Evens Dowell MD at [facility] Left: Knee [employer] 10/23/2030 [id number] / / [id number] [employer] [id number] Attune Cruciate Retain Cementless Knee Left 5 Component Femoral - [id number] Implanted:Qty: 1 on 12/21/2020 by Evens Dowell MD at [facility] Left: Knee [employer] 04/25/2030 [id number] / / [id number] [employer] [id number] Attune 6mm Cruciate Retaining Fix Bearing Knee 5 Insert Tibial - [id number] Implanted:Qty: 1 on 12/21/2020 by Evens Dowell MD at [facility] Left: Knee [employer] 09/22/2025 [id number] / / [id number] Procedures Procedure Name Priority Date/Time Associated Diagnosis Comments XR SHOULDER RIGHT 2 OR MORE VIEWS Routine 04/02/2024 8:20 AM TRUCK TECHNICIAN Osteoarthritis of right AC (acromioclavicular ) joint OR ARTHROCENTESIS ASPIR&/INJ MAJOR JT/BURSA W/O US Routine 04/02/2024 8:15 AM TRUCK TECHNICIAN Osteoarthritis of right AC (acromioclavicular ) joint Biceps tendonitis, right Right rotator cuff tendonitis from Last 3 Months Results * XR Shoulder Right 2 or More Views (04/02/2024 8:20 AM TRUCK TECHNICIAN) Anatomical Region Laterality Modality Upper Extremities, Shoulder Right Digi micaela Radiography Narrative 04/02/2024 11:06 AM TRUCK TECHNICIAN Views of the right shoulder reviewed interpreted today. ??No evidence of fracture dislocation. ??Advanced degenerative changes noted at AC joint with atlb-vw-maqc changes subchondral sclerosis subacromial spurring. ?? Glenohumeral joint space well-maintained. ??There is cervical hardware noted from previous C-spine surgery without loosening noted. Fang RUTH IMG XR PROCEDURES Natalia l Result * OR ARTHROCENTESIS ASPIR&/INJ MAJOR JT/BURSA W/O US (04/02/2024 8:15 AM TRUCK TECHNICIAN) Narrative Fang Galeas PA - 04/02/2024 8:15 AM TRUCK TECHNICIAN Fang Galeas PA ? 04/02/2024 11:13 AM [...] Result from Last 3 Months Insurance MEDICARE [facility] Address: [address] [address] [place] [address] IDPA IDPA Advance Directives For more information, please contact: [phone] * Full Code (Latest Code Status on File) Date Activated Date Inactivated Comments 12/21/2020 11:54 AM 12/22/2020 7:54 PM Care Teams Devulcanizer Charger Relationship Specialty Start Date End Date Peterson Cartwright MD PCP - General Internal Medicine 01/16/20 Philipp Almaguer NP [address] [place] [address] [place] [address] Nurse Practitioner Nurse Practitioner 12/22/20
--- OUTSIDE RECORDS SUMMARY | 2024-04-23 13:11 | XMS_ITS | Patient Health Summary ---
Author Organization [facility] Address [address] [place] [address] Care Team Providers Care Security Assurance Analyst Name Role Phone Peterson Cartwright MD Primary Care Provider [phone] Note from [facility],non-owned Affiliates and Associated Physician Practices is amultiple site organization consisting of ambulatory clinics and hospital sitesin [place], [place], [place] and [place]. This disclosure is being madepursuant to the Care Everywhere program and may not contain all information available regarding this patient. Last updated 17.[facility] Allergies * Codeine(Anaphylaxis) -High Criticality * Progesterone(Other) * Sulfa Drugs(Rash,Itching) -Medium Criticality * Tetanus Antitoxin(Swelling,Fever) Medications * Be aware that medications may not be up to date on this document. Alwaysverify current medications with the patient. * felodipine CR 24hr (PLENDIL) 5 MG tablet(Started 02/04/2018) * losartan-hydroCHLOROthiazide (HYZAAR) 100-25 MG tablet(Started 02/10/2018) * Acetaminophen (TYLENOL) 325 MG CAPS * Calcium Carb-Cholecalciferol (CALCIUM + D3 PO) Active Problems Problem Noted Date Diagnosed Date Osteoarthritis of right knee 02/12/2018 Acute meniscal tear of right knee 02/12/2018 Social History Tobacco Use Types Packs/Day Years Used Date Smoking Tobacco: Never Smokeless Tobacco: Never Sex and Gender Information Value Date Recorded Sex Assigned at Not on file Gender Identity Not on file Sexual Orientation Not on file Procedures * PROC INJECTION JOINT (SMALL/INTERMED/MAJOR)(Performed 02/21/2018) Performed for Right knee pain, unspecified chronicity, Osteoarthritis of right knee, unspecified osteoarthritis type Results * PROC INJECTION JOINT (SMALL/INTERMED/MAJOR) (02/21/2018 12:39 PM DEPUTY CORONER INVESTIGATOR) Narrative Gautam Benjamin MD - 02/21/2018 12:39 PM DEPUTY CORONER INVESTIGATOR Gautam Benjamin MD ? 02/21/2018 12:39 PM Procedural Note: After verbal consent and timeout, under sterile conditions, I injected the right knee with 5 mL (50 mg) of 1% lidocaine and 2 mL (80 mg) of Kenalog. ??The patient tolerated the procedure well and there were no complications. Gautam Benjamin MD [facility] Gautam Benjamin MD PROCEDURE/MINOR SURG ICAL ORDERABLES Care Teams Security Assurance Analyst Relationship Specialty Start Date End Date Peterson Cartwright MD [address] [place] [address] PCP - General 02/06/18
--- OUTSIDE RECORDS SUMMARY | 2024-04-23 13:11 | XMS_ITS | Clinical Summary ---
Author Organization [facility] Address [address] [place] [address]. [place], [place] [address] [place] [address] Care Team Providers Care Cnc Lathe Machinist Name Role Phone Unavailable Primary Care Provider Unavailabl e Social History Tobacco Use Types Packs/Day Years Used Date Smoking Tobacco: Never Assessed Comments Unknown Sex and Gender Information Value Date Recorded Sex Assigned at Not on file Legal Sex Female 8:45 PM CDT Gender Identity Not on file Sexual Orientation Not on file Plan of Treatment Health Maintenance Due Date Last Done Comments Colorectal Cancer Screening Colonoscopy (10 Years) 1956 Hepatitis C 02/05/1974 DTaP, Tdap and Td Vaccines ( 1 - Tdap) 02/05/1975 Mammogram Screening 1996 Zoster Vaccines (1 of 2) 02/05/2006 Dexa Scan (General) 02/05/2021 Pneumococcal Vaccine: 65+ Ye ars (1 of 1 - PCV) 02/05/2021 COVID-19 Vaccine ( - 2023-2 5 season) 2023 Influenza Adult (#1) 2023 RSV Immunization or 60+ Years (1 - 1-dose 75+ series) 02/05/2031 Meningococcal B Vaccine Aged Out No l onger eligible based on patient's age to complete this topic Meningococcal Vaccine Aged Out No saida kenzie eligible based on patient's age to complete this topic RSV Immunizations Under 20 Months Aged Out No longer eligible based on patient's age to complete this topic
--- OUTSIDE RECORDS SUMMARY | 2024-04-23 13:11 | XMS_ITS | Referral Summary ---
Author Organization [facility] Address [address] [place] [address] Care Team Providers Care Fashion Show Director Name Role Phone Peterson Cartwright MD Primary Care Provider [phone] Source Comments [facility],non-owned Affiliates and Associated Physician Practices is amultiple site organization consisting of ambulatory clinics and hospital sitesin [place], [place], [place] and [place]. This disclosure is being madepursuant to the Care Everywhere program and may not contain all information available regarding this patient. Last updated 17.[facility] [employer] Allergies Active Allergy Reactions Criticality Noted Date [...] Orientation Not on file Plan of Treatment Not on file Care Teams Fashion Show Director Relationship Specialty Start Date End Date Peterson Cartwright MD [address] [place], [place] [id number] PCP - General 02/06/18
== END 2024-04-23 12:10 | disposition home or self-care (01) ==
PROVIDERS: PCP Internal Medicine; Visit Provider Internal Medicine
DX: R01.1 Cardiac murmur, unspecified (principal); Z78.0 Asymptomatic menopausal state; M85.89 Other specified disorders of bone density and structure, multiple sites
CPT/HCPCS: 77080

== ENCOUNTER 2024-05-20 12:30 | Outpatient (CLI) | payer MEDICARE, MEDICAID, SELFPAY ==
--- NOTE | ~2024-05-20 | US_ITS ---
EXAMINATION: US venous doppler [facility] DATE: 05/20/2024 12:59 INDICATION: Palpable abnormality TECHNIQUE: Grayscale ultrasound images without and with compression and Doppler ultrasound images of the left lower extremity veins were obtained. COMPARISON: None. FINDINGS: The visualized portions of left common femoral vein, profunda (deep) femoral vein, femoral vein, popl iteal vein, peroneal veins, posterior tibial veins, and greater saphenous vein outflow are patent. Within the region of palpable concern is a morphologically benign, easily compressible greater saphen ous vein. IMPRESSION: 1. No deep venous thrombosis. Reviewed, dictated and finalized at location A. NT FINANCE ANALYST
--- OUTSIDE RECORDS SUMMARY | 2024-05-20 14:11 | XMS_ITS | Referral Summary ---
Author Organization [facility] Medical Office Building [facility] Address [address] [place] [address] Care Team Providers Care Six Horse Hitch Driver Name Role Phone Peterson Cartwright MD Primary Care Provider [phone] Philipp Almaguer NP Unavailable [phone] Encounters Date Type Department Care Team Description 04/02/2024 7:35 AM STAFF MECHANICAL ENGINEER - 04/02/2024 11:59 PM STAFF MECHANICAL ENGINEER Hospital Encounter [facility] Medical [facility] Orthopedics and Sports Medicine [address] [place] [address] [address] [address] Discharge Disposition: Discharge to home or self care 04/02/2024 8:15 AM STAFF MECHANICAL ENGINEER Office Visit [facility] Orthopedics and Sports Medicine [address] [place] [address] Fang Galeas PA Right rotator cuff [...] 2020 Tetanus Antitoxin Fever,Swelling Medium 02/12/2018 Medications hydroCHLOROthi azide (MICROZIDE) 12.5 mg capsule Take 2 capsules (25 mg total) by mouth daily Active irbesartan (AVAPRO) 300 mg tablet Take 1 tablet (300 mg total) by mouth nightly Active felodipine (PLENDIL) 5 mg 24 hr tablet Take 1 tablet (5 mg total) by mouth nightly Active calcium-vits J9-W-G7-minera ls 166.75 mg- 166.75 unit capsule Take by mouth daily Active acetaminophen 325 mg capsule Take by mouth 3 (three) times a day as needed Active cyanocobalamin , vitamin B-12, (VITAMIN B-12 ORAL) Take by mouth daily Active senna-docusate (PERICOLACE) 8.6-50 mg 1-2 times daily as needed for constipation 60 tablet 1 1 Active amLODIPine (NORVASC) 5 mg tablet Take 1 tablet (5 mg total) by mouth daily 2 Active celecoxib (CeleBREX) 200 mg capsule TAKE 1 CAPSULE BY MOUTH 2 TIMES DAILY 60 capsule 5 Active celecoxib (CeleBREX) 200 mg capsule Take 1 capsule (200 mg total) by mouth 2 (two) times a day 60 capsule 5 025 Discontin ued(Reord er) Active Problems Problem Noted Date Diagnosed Date [...] on file Legal Sex Female 8:15 PM STAFF MECHANICAL ENGINEER Gender Identity Not on file Sexual Orientation Not on file Last Filed Vital Signs Vital Sign Reading Time Taken Comments Blood Pressure 156/81 02/10/2022 2:12 PM STAFF MECHANICAL ENGINEER Pulse 59 02/10/2022 2:12 PM STAFF MECHANICAL ENGINEER Temperature 36.4 C (97.6 F) 12/22/2020 11:20 AM CDT Respiratory Rate 20 12/22/2020 11:20 AM CDT Oxygen Saturation 98% 12/22/2020 11:20 AM CDT Inhaled Oxygen Concentration - - Weight 103.4 kg (228 lb) 04/02/2024 8:26 AM STAFF MECHANICAL ENGINEER Height 158.8 cm (5' 2.5 ) 04/02/2024 8:26 AM STAFF MECHANICAL ENGINEER Body Mass Index 41.04 04/02/2024 8:26 AM STAFF MECHANICAL ENGINEER Plan of Treatment Not on file Medical Devices Implanted Type Area Stoneworking Belt Sander Device Identifier Shelf Expiration Date Model / Serial / Lot [employer] 6195-1-001 Cement Bone Simplex Gentamicin High Viscosity 40gm - [id number] Implanted:Qty: 1 on 12/21/2020 by Evens Dowell MD at [facility] Left: Knee [employer] 02/22/2022 6195-1-001 / / [id number] [employer] 6195-1-001 Cement Bone Simplex Gentamicin High Viscosity 40gm - [id number] Implanted:Qty: 1 on 12/21/2020 by Evens Dowell MD at [facility] Left: Knee [employer] 02/22/2022 6195-1-001 / / [id number] [employer] [id number] Attune S+ Cement Fix Bearing Knee 5 Baseplate Tibial - [id number] Implanted:Qty: 1 on 12/21/2020 by Evens Dowell MD at [facility] Left: Knee [employer] 10/23/2030 [id number] / / [id number] [employer] [id number] Attune Cruciate Retain Cementless Knee Left 5 Component Femoral - [id number] Implanted:Qty: 1 on 12/21/2020 by Evens Dowell MD at [facility] Left: Knee [employer] 04/25/2030 [id number] / / [id number] [employer] [id number] Attune 6mm Cruciate Retaining Fix Bearing Knee 5 Insert Tibial - [id number] Implanted:Qty: 1 on 12/21/2020 by Evens Dowell MD at [facility] Left: Knee [employer] 09/22/2025 [id number] / / [id number] Procedures Procedure Name Priority Date/Time Associated Diagnosis Comments XR SHOULDER RIGHT 2 OR MORE VIEWS Routine 04/02/2024 8:20 AM STAFF MECHANICAL ENGINEER Osteoarthritis of right AC (acromioclavicular ) joint ME ARTHROCENTESIS ASPIR&/INJ MAJOR JT/BURSA W/O US Routine 04/02/2024 8:15 AM STAFF MECHANICAL ENGINEER Osteoarthritis of right AC (acromioclavicular ) joint Biceps tendonitis, right Right rotator cuff tendonitis from Last 3 Months Results * XR Shoulder Right 2 or More Views (04/02/2024 8:20 AM STAFF MECHANICAL ENGINEER) Anatomical Region Laterality Modality Upper Extremities, Shoulder Right Digi micaela Radiography Narrative 04/02/2024 11:06 AM STAFF MECHANICAL ENGINEER Views of the right shoulder reviewed interpreted today. No evidence of fracture dislocation. Advanced degenerative changes noted at AC joint with [id number] changes subchondral sclerosis subacromial spurring. Glenohumeral joint space well-maintained. There is cervical hardware noted from previous C-spine surgery without loosening noted. us Fang RUTH IMG XR PROCEDURES Natalia l Result * ME ARTHROCENTESIS ASPIR&/INJ MAJOR JT/BURSA W/O US (04/02/2024 8:15 AM STAFF MECHANICAL ENGINEER) Narrative Fang Galeas PA - 04/02/2024 8:15 AM STAFF MECHANICAL ENGINEER Fang Galeas PA 04/02/2024 11:13 AM Large Joint (Hip, Knee, Shoulder) Injection: R subacromial bursa Performed by: Fang Galeas PA Authorized by: Fang Galeas PA Large Joint Injection/Aspiration: Consent Given by: Patient Site marked: the procedure site was marked Timeout: prior to procedure the correct patient, procedure, and site was verified Verbal consent obtained: Yes Supporting Documentation: Indications: Pain Procedure Details: Location: Shoulder Site: R subacromial bursa Prep: patient was prepped and draped in usual sterile fashion Prep: patient was prepped using a clean technique Needle Size: 22 G Approach: Posterior Ultrasound guided: No Fluroscopic guidance: No Medications: 80 mg methylPREDNISolone acetate 80 mg/mL Patient tolerance: Patient tolerated the procedure well with no immediate complications Fang RUTH IN CLINIC/BEDSIDE SO SENAGEORGI Final Result from Last 3 Months Insurance [facility] Advance Directives For more information, please contact: [phone] * Full Code (Latest Code Status on File) Date Activated Date Inactivated Comments 12/21/2020 11:54 AM 12/22/2020 7:54 PM Care Teams Six Horse Hitch Driver Relationship Specialty Start Date End Date Peterson Cartwright MD PCP - General Internal Medicine 01/16/20 Philipp Almaguer NP [address] [place] [address] DR BRODERICK [address] [place] [address] Nurse Practitioner Nurse Practitioner 12/22/20
--- OUTSIDE RECORDS SUMMARY | 2024-05-20 14:12 | XMS_ITS | Patient Health Summary ---
Author Organization [facility] Address [address] [place] [address] Care Team Providers Care Linen Controller Name Role Phone Peterson Cartwright MD Primary Care Provider [phone] Note from [facility],non-owned Affiliates and Associated Physician Practices is amultiple site organization consisting of ambulatory clinics and hospital sitesin [place], [place], [place] and [place]. This disclosure is being madepursuant to the Care Everywhere program and may not contain all information available regarding this patient. Last updated 17.[facility] Allergies * Codeine(Anaphylaxis) -High Criticality * Progesterone(Other) [...] PROC INJECTION JOINT (SMALL/INTERMED/MAJOR) (02/21/2018 12:39 PM MOLDED PARTS INSPECTOR) Narrative Gautam Benjamin MD - 02/21/2018 12:39 PM MOLDED PARTS INSPECTOR Gautam Benjamin MD 02/21/2018 12:39 PM Procedural Note: After verbal consent and timeout, under sterile conditions, I injected the right knee with 5 mL (50 mg) of 1% lidocaine and 2 mL (80 mg) of Kenalog. The patient tolerated the procedure well and there were no complications. Gautam Benjamin MD [facility] Gautam Benjamin MD PROCEDURE/MINOR SURG ICAL ORDERABLES Care Teams Linen Controller Relationship Specialty Start Date End Date Peterson Cartwright MD [address] [place], [place] [id number] PCP - General 02/06/18
--- OUTSIDE RECORDS SUMMARY | 2024-05-20 14:12 | XMS_ITS | Clinical Summary ---
Author Organization [facility] Address [address] [place] [address] Care Team Providers Care Psychiatric Attendant Name Role Phone Unavailable Primary Care Provider [...]
--- OUTSIDE RECORDS SUMMARY | 2024-05-20 14:12 | XMS_ITS | Clinical Summary ---
Author Organization [facility] Medical Office Building B Address [address] [place] [address] Care Team Providers Care Second Miller Name Role Phone Peterson Cartwright MD Primary Care Provider [phone] Philipp Almaguer TESTER EQUIPMENT Unavailable [phone] Allergies Active Allergy Reactions Criticality Noted Date [...] mg total) by mouth nightly Active calcium-vits Q4-M-B4-minera ls 166.75 mg- 166.75 unit capsule Take [...] Department Care Team Description 04/02/2024 8:15 AM MANUFACTURE SPECIALIST Office Visit [facility] Orthopedics and Sports Medicine [address] [place] [address] [address], [place] [address] Fang Galeas PA Right rotator cuff tendonitis (Primary Dx); Osteoarthritis of right AC (acromioclavicular) joint; Spasm of right trapezius muscle; Biceps tendonitis, right 04/02/2024 7:35 AM MANUFACTURE SPECIALIST - 04/02/2024 11:59 PM MANUFACTURE SPECIALIST Hospital Encounter [facility] Orthopedics and Sports Medicine [address] [place] [address] [address], [place] [address] Discharge Disposition: Discharge to home or self [...] on file Legal Sex Female 8:15 PM MANUFACTURE SPECIALIST Gender Identity Not on file Sexual Orientation Not on file Obstetrics History Last Filed Vital Signs Vital Sign Reading Time Taken Comments Blood Pressure 156/81 02/10/2022 2:12 PM MANUFACTURE SPECIALIST Pulse 59 02/10/2022 2:12 PM MANUFACTURE SPECIALIST Temperature 36.4 C (97.6 F) 12/22/2020 11:20 AM CDT Respiratory Rate 20 12/22/2020 11:20 AM CDT Oxygen Saturation 98% 12/22/2020 11:20 AM CDT Inhaled Oxygen Concentration - - Weight 103.4 kg (228 lb) 04/02/2024 8:26 AM MANUFACTURE SPECIALIST Height 158.8 cm (5' 2.5 ) 04/02/2024 8:26 AM MANUFACTURE SPECIALIST Body Mass Index 41.04 04/02/2024 8:26 AM MANUFACTURE SPECIALIST Plan of Treatment Health Maintenance Due Date Last Done Comments Breast Cancer Screening-Mammogram 1955 Colon Cancer Screening-Colonoscopy 1955 Depression Screening 1955 Hepatitis C Screening 1955 Osteoporosis Screening-Bone Density Scan 1955 DTaP/Tdap/Td Vaccine (1 - Tdap) 02/05/1967 Hepatitis B Screening 02/05/1974 Pneumococcal vaccine 65+ (1 of 1 - PCV) 02/05/2006 Zoster Vaccine (1 of 2) 02/05/2006 Well Visit 65+ 02/05/2021 Fall Risk Assessment 12/22/2021 12/22/2020 Covid-19 Vaccine ( season) 2023, 11/01/2020 Influenza Vaccine (#1) 2023 Medical Devices Implanted Type Area Order Processing Clerk Device Identifier Shelf Expiration Date Model / Serial / Lot [employer] 6195-1-001 Cement Bone Simplex Gentamicin High Viscosity 40gm - [id number] Implanted:Qty: 1 on 12/21/2020 by Evens Dowell MD at [facility] Left: Knee [employer] 02/22/2022 6195-1-001 / / [id number] [employer] 6195-1-001 Cement Bone Simplex Gentamicin High Viscosity 40gm - [id number] Implanted:Qty: 1 on 12/21/2020 by Evens Dowell MD at [facility] Left: Knee [employer] 02/22/2022 6195-1-001 / / [id number] [employer] [id number] Attune S+ Cement Fix Bearing Knee 5 Baseplate Tibial - [id number] Implanted:Qty: 1 on 12/21/2020 by Evens Dowell MD at [facility] Left: Knee [employer] 10/23/2030 [id number] / / [id number] [employer] [id number] Attune Cruciate Retain Cementless Knee Left 5 Component Femoral - [id number] Implanted:Qty: 1 on 12/21/2020 by Evens Dowell MD at [facility] Left: Knee [employer] 04/25/2030 [id number] / / [id number] [employer] [id number] Attune 6mm Cruciate Retaining Fix Bearing Knee 5 Insert Tibial - [id number] Implanted:Qty: 1 on 12/21/2020 by Evens Dowell MD at [facility] Left: Knee [employer] 09/22/2025 [id number] / / [id number] Procedures Procedure Name Priority Date/Time Associated Diagnosis Comments XR SHOULDER RIGHT 2 OR MORE VIEWS Routine 04/02/2024 8:20 AM MANUFACTURE SPECIALIST Osteoarthritis of right AC (acromioclavicular ) joint LA ARTHROCENTESIS ASPIR&/INJ MAJOR JT/BURSA W/O US Routine 04/02/2024 8:15 AM MANUFACTURE SPECIALIST Osteoarthritis of right AC (acromioclavicular ) joint Biceps tendonitis, right Right rotator cuff tendonitis from Last 3 Months Results * XR Shoulder Right 2 or More Views (04/02/2024 8:20 AM MANUFACTURE SPECIALIST) Anatomical Region Laterality Modality Upper Extremities, Shoulder Right Digi micaela Radiography Narrative 04/02/2024 11:06 AM MANUFACTURE SPECIALIST Views of the right shoulder reviewed interpreted today. No evidence of fracture dislocation. Advanced degenerative changes noted at AC joint with jjgi-ko-wgqi changes subchondral sclerosis subacromial spurring. Glenohumeral joint space well-maintained. There is cervical hardware noted from previous C-spine surgery without loosening noted. us Fang RUTH IMG XR PROCEDURES Natalia l Result * LA ARTHROCENTESIS ASPIR&/INJ MAJOR JT/BURSA W/O US (04/02/2024 8:15 AM MANUFACTURE SPECIALIST) Narrative Fang Galeas PA - 04/02/2024 8:15 AM MANUFACTURE SPECIALIST Fang Galeas PA 04/02/2024 11:13 AM Large [...] Result from Last 3 Months Insurance MEDICARE [employer] Advance Directives For more information, please contact: [phone] * Full Code (Latest Code Status on File) Date Activated Date Inactivated Comments 12/21/2020 11:54 AM 12/22/2020 7:54 PM Care Teams Second Miller Relationship Specialty Start Date End Date Peterson Cartwright MD PCP - General Internal Medicine 01/16/20 Philipp Almaguer NP [address] [place] [address] DR BRODERICK [address] [place] [id number] Nurse Practitioner Nurse Practitioner 12/22/20
--- OUTSIDE RECORDS SUMMARY | 2024-05-20 14:12 | XMS_ITS | Clinical Summary ---
Author Organization [facility] Address [address] [facility] [place] [address] Care Team Providers Care Dye Lab Technician Name Role Phone Peterson Cartwright MD Primary Care Provider [phone] Source Comments [facility],non-owned Affiliates and Associated Physician Practices is amultiple site organization consisting of ambulatory clinics and hospital sitesin [place], [place], [place] and [place]. This disclosure is being madepursuant to the Care Everywhere program and may not contain all information available regarding this patient. Last updated 17.[facility] Allergies Active Allergy Reactions Criticality Noted Date [...] LIPID TESTING 1955 MAMMOGRAM 1955 MEDICARE AWV 12 MONTHS 1955 HEPATITIS C SCREENING 02/01/1974 [...] age to complete this topic Care Teams Dye Lab Technician Relationship Specialty Start Date End Date Peterson Cartwright MD [address] [place] [address] PCP - General 02/06/18
--- OUTSIDE RECORDS SUMMARY | 2024-05-20 14:12 | XMS_ITS | Referral Summary ---
Author Organization [facility] Address [address] [facility] [place] [address] Care Team Providers Care Music Orchestrator Name Role Phone Peterson Cartwright MD Primary Care Provider [phone] Source Comments [facility],non-owned Affiliates and Associated Physician Practices is amultiple site organization consisting of ambulatory clinics and hospital sitesin [place], [place], [place] and [place]. This disclosure is being madepursuant to the Care Everywhere program and may not contain all information available regarding this patient. Last updated 17.[facility] [employer] Allergies Active Allergy Reactions Criticality Noted Date [...] of Treatment Not on file Care Teams Music Orchestrator Relationship Specialty Start Date End Date Peterson Cartwright MD [address] [place], [place] [id number] PCP - General 02/06/18
== END 2024-05-20 12:31 | disposition home or self-care (01) ==
LOC: CHSIMG 12:33
PROVIDERS: PCP Internal Medicine; Visit Provider Internal Medicine
DX: M79.89 Other specified soft tissue disorders (principal)
CPT/HCPCS: 93971

== ENCOUNTER 2024-06-05 09:14 | Outpatient (CLI) | payer MEDICARE, MEDICAID, SELFPAY ==
--- NOTE | ~2024-06-05 | MR_ITS ---
MRI of the right shoulder Technique: Axial proton-density fat-sat images, coronal proton density fat-sat and T2 fat-sat images, and sagittal T1-weighted and T2 fat-sat images were acquired. Clinical History: Biceps tendinitis, arthritis Findings: There is moderate disease. She joint degenerative change, with fluid in the joint space and bony productive change about the joint. Coracoclavicular, coracoacromial, and coracohumeral ligament s appear intact. There is probably full-thickness tear involving the anterior aspect of the distal supraspinatus tendo n. Infraspinatus tendon demonstrates mild tendinosis without partial or full-thickness tear. Subscapu [place] tendon is intact with mild tendinosis. Tendon of the long of the biceps is intact. No definite labral tear seen. Inferior glenohumeral ligament is intact. No significant degenerative change of the glenohumeral join t. There is minimal fluid in the subacromial/subdeltoid bursa. No muscle atrophy or edema. IMPRESSION: Probable area of full-thickness tearing at the anterior, distal supraspinatus tendon insertion. Moderate to severe AC joint degenerative change. Reviewed, dictated and finalized at location .
--- OUTSIDE RECORDS SUMMARY | 2024-06-05 10:22 | XMS_ITS | Referral Summary ---
Author Organization [facility] Address [address] [place] [address] Care Team Providers Care Clinical Nutrition Manager Name Role Phone Peterson Cartwright MD Primary Care Provider [phone] Philipp Almaguer NP Unavailable [phone] Encounters Date Type Department Care Team Description 05/23/2024 Telephone [facility] [address] [place] [address] [address] [phone] Fang Galeas PA 05/23/2024 9:15 AM SECURITY AND COMPLIANCE ANALYST Office Visit [facility] [address] [place] [address] [address], [place] [phone] Fang Galeas PA Insufficiency of right rotator cuff (Primary Dx); Biceps tendonitis, right; Osteoarthritis of right AC (acromioclavicular) joint 04/02/2024 7:35 AM SECURITY AND COMPLIANCE ANALYST - 04/02/2024 11:59 PM SECURITY AND COMPLIANCE ANALYST Hospital Encounter [facility] [address] [place] [address], [place] [phone] Discharge Disposition: Discharge to home or self care 04/02/2024 8:15 AM SECURITY AND COMPLIANCE ANALYST Office Visit [facility] [address] [place] [address], [place] [phone] Fang Galeas PA Right rotator cuff tendonitis [...] mg total) by mouth nightly Active calcium-vits I1-U-A9-minera ls 166.75 mg- 166.75 unit capsule Take by mouth daily Active acetaminophen 325 mg capsule Take by mouth 3 (three) times a day as needed Active cyanocobalamin , vitamin B-12, (VITAMIN B-12 ORAL) Take by mouth daily Active senna-docusate (PERICOLACE) 8.6-50 mg 1-2 times daily as needed for constipation 60 tablet 1 12/23/19 21 Active amLODIPine (NORVASC) 5 mg tablet Take 1 tablet (5 mg total) by mouth daily 01/07/20 22 Active celecoxib (CeleBREX) 200 mg capsule Take 1 capsule by mouth twice daily 60 capsule 05/27/19 25 Active celecoxib (CeleBREX) 200 mg capsule TAKE 1 CAPSULE BY MOUTH 2 TIMES DAILY 60 capsule 05/02/19 25 025 Discontinued Active Problems Problem Noted Date Diagnosed Date [...] on file Legal Sex Female 8:15 PM SECURITY AND COMPLIANCE ANALYST Gender Identity Not on file Sexual Orientation Not on file Last Filed Vital Signs Vital Sign Reading Time Taken Comments Blood Pressure 149/67 05/23/2024 9:33 AM SECURITY AND COMPLIANCE ANALYST Pulse 61 05/23/2024 9:33 AM SECURITY AND COMPLIANCE ANALYST Temperature 36.4 C (97.6 F) 12/22/2020 11:20 AM CDT Respiratory Rate 20 12/22/2020 11:20 AM CDT Oxygen Saturation 98% 12/22/2020 11:20 AM CDT Inhaled Oxygen Concentration - - Weight 103.4 kg (228 lb) 04/02/2024 8:26 AM SECURITY AND COMPLIANCE ANALYST Height 158.8 cm (5' 2.5 ) 04/02/2024 8:26 AM SECURITY AND COMPLIANCE ANALYST Body Mass Index 41.04 04/02/2024 8:26 AM SECURITY AND COMPLIANCE ANALYST Plan of Treatment Not on file Medical Devices Implanted Type Area Medicinal Plant Picker Device Identifier Shelf Expiration Date Model / Serial / Lot [employer] 6195-1-001 Cement Bone Simplex Gentamicin High Viscosity 40gm - [id number] Implanted:Qty: 1 on 12/21/2020 by Evens Dowell MD at [facility] Left: Knee [employer] 02/22/2022 6195-1-001 / / [id number] [employer] 6195-1-001 Cement Bone Simplex Gentamicin High Viscosity 40gm - [id number] Implanted:Qty: 1 on 12/21/2020 by Evens Dowell MD at [facility] Left: Knee [employer] 02/22/2022 6195-1-001 / / [id number] [employer] [id number] Attune S+ Cement Fix Bearing Knee 5 Baseplate Tibial - [id number] Implanted:Qty: 1 on 12/21/2020 by Evens Dowell MD at [facility] Left: Knee [employer] 10/23/2030 [id number] / / [id number] [employer] [id number] Attune Cruciate Retain Cementless Knee Left 5 Component Femoral - [id number] Implanted:Qty: 1 on 12/21/2020 by Evens Dowell MD at [facility] Left: Knee [employer] 04/25/2030 [id number] / / [id number] [employer] [id number] Attune 6mm Cruciate Retaining Fix Bearing Knee 5 Insert Tibial - [id number] Implanted:Qty: 1 on 12/21/2020 by Evens Dowell MD at [facility] Left: Knee [employer] 09/22/2025 [id number] / / [id number] Procedures Procedure Name Priority Date/Time Associated Diagnosis Comments XR SHOULDER RIGHT 2 OR MORE VIEWS Routine 04/02/2024 8:20 AM SECURITY AND COMPLIANCE ANALYST Osteoarthritis of right AC (acromioclavicular ) joint MD ARTHROCENTESIS ASPIR&/INJ MAJOR JT/BURSA W/O US Routine 04/02/2024 8:15 AM SECURITY AND COMPLIANCE ANALYST Osteoarthritis of right AC (acromioclavicular ) joint Biceps tendonitis, right Right rotator cuff tendonitis from Last 3 Months Results * XR Shoulder Right 2 or More Views (04/02/2024 8:20 AM SECURITY AND COMPLIANCE ANALYST) Anatomical Region Laterality Modality Upper Extremities, Shoulder Right Digi micaela Radiography Narrative 04/02/2024 11:06 AM SECURITY AND COMPLIANCE ANALYST Views of the right shoulder reviewed interpreted today. No evidence of fracture dislocation. Advanced degenerative changes noted at AC joint with [id number] changes subchondral sclerosis subacromial spurring. Glenohumeral joint space well-maintained. There is cervical hardware noted from previous C-spine surgery without loosening noted. us Fang RUTH IMG XR PROCEDURES Natalia l Result * MD ARTHROCENTESIS ASPIR&/INJ MAJOR JT/BURSA W/O US (04/02/2024 8:15 AM SECURITY AND COMPLIANCE ANALYST) Narrative Fang Galeas PA - 04/02/2024 8:15 AM SECURITY AND COMPLIANCE ANALYST Fang Galeas PA 04/02/2024 11:13 AM Large [...] Result from Last 3 Months Insurance MEDICARE [facility] Advance Directives For more information, please contact: [phone] * Full Code (Latest Code Status on File) Date Activated Date Inactivated Comments 12/21/2020 11:54 AM 12/22/2020 7:54 PM Care Teams Clinical Nutrition Manager Relationship Specialty Start Date End Date Peterson Cartwright MD PCP - General Internal Medicine 01/16/20 Philipp Almaguer NP [address] [place] [address] DR BRODERICK [address] [place] [id number] Nurse Practitioner Nurse Practitioner 12/22/20
--- OUTSIDE RECORDS SUMMARY | 2024-06-05 10:22 | XMS_ITS | Patient Health Summary ---
Author Organization [facility] Address [address] [place] [address] Care Team Providers Care Supervisor Partial Denture Department Name Role Phone Peterson Cartwright MD Primary Care Provider [phone] Note from [facility],non-owned Affiliates and Associated Physician Practices is amultiple site organization consisting of ambulatory clinics and hospital sitesin [place], [place], [place] and [place]. This disclosure is being madepursuant to the Care Everywhere program and may not contain all information available regarding this patient. Last updated 17.[facility] Allergies * Codeine(Anaphylaxis) -High Criticality * [...] PROC INJECTION JOINT (SMALL/INTERMED/MAJOR) (02/21/2018 12:39 PM ROUGH AND TRUING MACHINE OPERATOR) Narrative Gautam Benjamin MD - 02/21/2018 12:39 PM ROUGH AND TRUING MACHINE OPERATOR Gautam Benjamin MD 02/21/2018 12:39 PM Procedural Note: After verbal consent and timeout, under sterile conditions, I injected the right knee with 5 mL (50 mg) of 1% lidocaine and 2 mL (80 mg) of Kenalog. The patient tolerated the procedure well and there were no complications. Gautam Benjamin MD [facility] Gautam Benjamin MD PROCEDURE/MINOR SURG ICAL ORDERABLES Care Teams Supervisor Partial Denture Department Relationship Specialty Start Date End Date Peterson Cartwright MD [address] [place], [place] [id number] PCP - General 02/06/18
--- OUTSIDE RECORDS SUMMARY | 2024-06-05 10:22 | XMS_ITS | Clinical Summary ---
Author Organization [facility] [employer] Address [address] [place] [address] Care Team Providers Care Retail Reset Merchandiser Name Role Phone Peterson Cartwright MD Primary Care Provider [phone] Source Comments [facility],non-owned Affiliates and Associated Physician Practices is amultiple site organization consisting of ambulatory clinics and hospital sitesin [place], [place], [place] and [place]. This disclosure is being madepursuant to the Care Everywhere program and may not contain all information available regarding this patient. Last updated 17.[facility] [employer] Allergies Active Allergy Reactions Criticality Noted Date [...] to complete this topic MENINGOCOCCAL (Group B) VACC INE SHARED DECISION-MAKING Aged Out No longer eligibl e based on patient's age to complete this topic MENINGOCOCCAL GROUPS A/C/Y/W VACCINE Aged Out No longer eligible b ased on patient's age to complete this topic Care Teams Retail Reset Merchandiser Relationship Specialty Start Date End Date Peterson Cartwright MD [address] [place] [address] PCP - General 02/06/18
--- OUTSIDE RECORDS SUMMARY | 2024-06-05 10:22 | XMS_ITS | Clinical Summary ---
Author Organization [facility] Address [address] [place] [address] Care Team Providers Care Signal Fitter Name Role Phone Peterson Cartwright MD Primary Care Provider [phone] Philipp Almaguer UTILITY WORKER PRODUCTION Unavailable [phone] Allergies Active Allergy Reactions Criticality Noted Date [...] mg total) by mouth nightly Active calcium-vits K9-H-T3-minera ls 166.75 mg- 166.75 unit capsule Take [...] Date Type Department Care Team Description 05/23/2024 9:15 AM STEAM AND GAS TURBINE ASSEMBLER Office Visit [facility] Orthopedics and Sports Medicine [address] [place] [address] [address] [place] [address] Fang Galeas PA Insufficiency of right rotator cuff (Primary Dx); Biceps tendonitis, right; Osteoarthritis of right AC (acromioclavicular) joint 05/23/2024 Telephone [facility] Sports Medicine [address] [place] [phone] Fang Galeas PA 04/02/2024 8:15 AM STEAM AND GAS TURBINE ASSEMBLER Office Visit [facility] Sports Medicine [address] [place] [address] [address] [place] [address] Fang Galeas PA Right rotator cuff tendonitis (Primary Dx); Osteoarthritis of right AC (acromioclavicular) joint; Spasm of right trapezius muscle; Biceps tendonitis, right 04/02/2024 7:35 AM STEAM AND GAS TURBINE ASSEMBLER - 04/02/2024 11:59 PM STEAM AND GAS TURBINE ASSEMBLER Hospital Encounter [facility] Sports Medicine [address] [place] [address], [place] [address] Discharge Disposition: Discharge to home or self [...] on file Legal Sex Female 8:15 PM STEAM AND GAS TURBINE ASSEMBLER Gender Identity Not on file Sexual Orientation Not on file Obstetrics History Last Filed Vital Signs Vital Sign Reading Time Taken Comments Blood Pressure 149/67 05/23/2024 9:33 AM STEAM AND GAS TURBINE ASSEMBLER Pulse 61 05/23/2024 9:33 AM STEAM AND GAS TURBINE ASSEMBLER Temperature 36.4 C (97.6 F) 12/22/2020 11:20 AM CDT Respiratory Rate 20 12/22/2020 11:20 AM CDT Oxygen Saturation 98% 12/22/2020 11:20 AM CDT Inhaled Oxygen Concentration - - Weight 103.4 kg (228 lb) 04/02/2024 8:26 AM STEAM AND GAS TURBINE ASSEMBLER Height 158.8 cm (5' 2.5 ) 04/02/2024 8:26 AM STEAM AND GAS TURBINE ASSEMBLER Body Mass Index 41.04 04/02/2024 8:26 AM STEAM AND GAS TURBINE ASSEMBLER Plan of Treatment Health Maintenance Due Date [...] (#1) 2023 Medical Devices Implanted Type Area Architectural Superintendent Device Identifier Shelf Expiration Date Model / Serial / Lot [employer] 6195-1-001 Cement Bone Simplex Gentamicin High Viscosity 40gm - [id number] Implanted:Qty: 1 on 12/21/2020 by Evens Dowell MD at [facility] Left: Knee [employer] 02/22/2022 6195-1-001 / / [id number] [employer] 6195-1-001 Cement Bone Simplex Gentamicin High Viscosity 40gm - [id number] Implanted:Qty: 1 on 12/21/2020 by Evens Dowell MD at [facility] Left: Knee [employer] 02/22/2022 6195-1-001 / / [id number] [employer] [id number] Attune S+ Cement Fix Bearing Knee 5 Baseplate Tibial - [id number] Implanted:Qty: 1 on 12/21/2020 by Evens Dowell MD at [facility] Left: Knee [employer] 10/23/2030 [id number] / / [id number] [employer] [id number] Attune Cruciate Retain Cementless Knee Left 5 Component Femoral - [id number] Implanted:Qty: 1 on 12/21/2020 by Evens Dowell MD at [facility] Left: Knee [employer] 04/25/2030 [id number] / / [id number] [employer] [id number] Attune 6mm Cruciate Retaining Fix Bearing Knee 5 Insert Tibial - [id number] Implanted:Qty: 1 on 12/21/2020 by Evens Dowell MD at [facility] Left: Knee [employer] 09/22/2025 [id number] / / [id number] Procedures Procedure Name Priority Date/Time Associated Diagnosis Comments XR SHOULDER RIGHT 2 OR MORE VIEWS Routine 04/02/2024 8:20 AM STEAM AND GAS TURBINE ASSEMBLER Osteoarthritis of right AC (acromioclavicular ) joint [place] ARTHROCENTESIS ASPIR&/INJ MAJOR JT/BURSA W/O US Routine 04/02/2024 8:15 AM STEAM AND GAS TURBINE ASSEMBLER Osteoarthritis of right AC (acromioclavicular ) joint Biceps tendonitis, right Right rotator cuff tendonitis from Last 3 Months Results * XR Shoulder Right 2 or More Views (04/02/2024 8:20 AM STEAM AND GAS TURBINE ASSEMBLER) Anatomical Region Laterality Modality Upper Extremities, Shoulder Right Digi micaela Radiography Narrative 04/02/2024 11:06 AM STEAM AND GAS TURBINE ASSEMBLER Views of the right shoulder reviewed interpreted today. No evidence of fracture dislocation. Advanced degenerative changes noted at AC joint with ptea-if-qdzq changes subchondral sclerosis subacromial spurring. Glenohumeral joint space well-maintained. There is cervical hardware noted from previous C-spine surgery without loosening noted. Fang RUTH IMG XR PROCEDURES Natalia l Result * [place] ARTHROCENTESIS ASPIR&/INJ MAJOR JT/BURSA W/O US (04/02/2024 8:15 AM STEAM AND GAS TURBINE ASSEMBLER) Narrative Fang Galeas PA - 04/02/2024 8:15 AM STEAM AND GAS TURBINE ASSEMBLER Fang Galeas PA 04/02/2024 11:13 AM Large [...] the procedure well with no immediate complications Result [facility] Fang RUTH IN CLINIC/BEDSIDE SO KATE Final Result from Last 3 Months Insurance MEDICARE [employer] Advance Directives For more information, please contact: [phone] * Full Code (Latest Code Status on File) Date Activated Date Inactivated Comments 12/21/2020 11:54 AM 12/22/2020 7:54 PM Care Teams Signal Fitter Relationship Specialty Start Date End Date Peterson Cartwright MD PCP - General Internal Medicine 01/16/20 Philipp Almaguer NP [address] [place] [address] DR BRODERICK [address] [place] [id number] Nurse Practitioner Nurse Practitioner 12/22/20
--- OUTSIDE RECORDS SUMMARY | 2024-06-05 10:22 | XMS_ITS | Referral Summary ---
Author Organization [facility] Address [address] [place] [address] Care Team Providers Care Agriculture Worker Name Role Phone Peterson Cartwright MD Primary Care Provider [phone] Source Comments [facility],non-owned Affiliates and Associated Physician Practices is amultiple site organization consisting of ambulatory clinics and hospital sitesin [place], [place], [place] and [place]. This disclosure is being madepursuant to the Care Everywhere program and may not contain all information available regarding this patient. Last updated 17.[facility] [employer] Allergies Active Allergy Reactions Criticality Noted Date [...] of Treatment Not on file Care Teams Agriculture Worker Relationship Specialty Start Date End Date Peterson Cartwright MD [address] [place], [place] [id number] PCP - General 02/06/18
--- OUTSIDE RECORDS SUMMARY | 2024-06-05 10:22 | XMS_ITS | Clinical Summary ---
Author Organization [facility] Address [address] [place] [address] Care Team Providers Care Legal Assistant Name Role Phone Unavailable Primary Care Provider [...]
== END 2024-06-05 09:15 | disposition home or self-care (01) ==
LOC: CHSIMG 09:17
PROVIDERS: PCP Internal Medicine; Visit Provider Physician Assistant
DX: M25.311 Other instability, right shoulder (principal); M75.21 Bicipital tendinitis, right shoulder; M19.019 Primary osteoarthritis, unspecified shoulder
CPT/HCPCS: 73221

== ENCOUNTER 2024-12-24 08:45 | Outpatient (RCR) | payer MEDICARE, MEDICAID, SELFPAY ==
--- NOTE | 2024-11-19 10:54 | OPREHPOC ---
Outpatient Therapy Plan of Care This is a Multidisciplinary Plan of Care that may contain components documented by all disciplines (PT, OT, and ST.) PT Problem 1 PT Problem #1 Knowledge Deficit PT Goal 1 Goal / Goal Update Patient to demonstrate independence with HEP Target Visit 2 Progress Met PT Goal 2 Goal / Goal Update Continue to progress as protocol allows Target Visit 35 PT Problem 2 PT Problem #2 Pain PT Goal 1 Goal / Goal Update 1. Patient to report highest pain at 2/10 -met 2. Patient to report no sleep disturbance due to R shoulder pain -not met Target Visit 10 Progress Partially Met PT Goal 2 Goal / Goal Update continue 2 Target Visit 35 PT Problem 3 PT Problem #3 Impaired Range of Motion PT Goal 1 Goal / Goal Update 1. patient to demonstrate 160 deg of R shoulder passive flexion Continue Target Visit 10 Progress Met PT Goal 2 Goal / Goal Update 2. patient to demonstrate 160 deg of R shoulder active flexion to return to reaching into cabinets for house hold tasks Continue Target Visit 35 Progress Not Met PT Problem 4 PT Problem #4 Impaired Strength PT Goal 1 Goal / Goal Update Patient to demonstrate 4+/5 R UE strength to return to lifting for house hold tasks Target Visit 10 Progress Not Met PT Goal 2 Goal / Goal Update continue Target Visit 35 PT Problem 5 PT Problem #5 Impaired Functional Mobility PT Goal 1 Goal / Goal Update 1. Patient to demonstrate 20% improvement on QuickDash -not met 2. Patient to report ability to dress without assistance -not met 3. Patient to report ability to fix hair at PLOF -met Target Visit 10 Progress Partially Met PT Goal 2 Goal / Goal Update Continue Target Visit 35
--- NOTE | 2024-11-19 10:54 | PTOPPROG ---
Assessment and note entered by Nicol Silva, PT Evaluation Information Assessment Status Progress Diagnosis R shoulder pain Other ICD-10 Condition Codes ( Z98.890 PT) Onset 08/11/24 Subjective Information Cyndi reports her right shoulder is getting better overall. She is able to perform bathing, grooming, and dressing with minimal difficulty. She does still alter how she don/doffs a bra and occasionally needs help getting a shirt on. She is still limited with heavy lifting and with overhead reaching. She also still gets pain if she sleeps on the right side. Assessment PT Clinical Summary Cyndi Pearce is now 14 weeks s/p right shoulder rotator cuff repair. She is reporting improved function including being able to wash her hair without bending forward and dressing easier . She does still have difficulty donning a shirt or bra, reaching overhead with weight, sleeping on the right side, and lifting heavy items. She demonstrates improved right shoulder active and passive ROM from last progress note however, she is still limited with active external rotation, flexion, and abduction. She has made progress with strength but continues to have moderate deficits in right shoulder strength. 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 She will continue to benefit from skilled PT to further address ongoing limitations and progress through her post operative protocol. Plan of Care Interventions Electrical Stimulation,Hot Pack/Cold Pack,Neuro Re -education,Patient/Caregiver Education,Therapeutic Activities,Therapeutic Exercise PT Services Indicated Yes Treatment Frequency and Continue 2 times a week for 8 visits Duration These treatments will address the objective and functional deficits as defined above. The patient will be advanced safely and appropriately in order for the patient to progress towards his/her prior level of function. Additional exercises will be introduced and as well as a comprehensive home exercise program upon discharge, if needed, ?to ensure carryover of functional gains achieved in the clinic. This treatment plan has been reviewed and agreement upon by the patient.
--- NOTE | 2024-12-16 12:20 | OPREHPOC ---
Outpatient Therapy Plan of Care This is a Multidisciplinary Plan of Care that may contain components documented by all disciplines (PT, OT, and ST.) PT Problem 1 PT Problem #1 Knowledge Deficit PT Goal 1 Goal / Goal Update Patient to demonstrate independence with HEP Target Visit 2 Progress Met PT Goal 2 Goal / Goal Update Continue to progress as protocol allows Target Visit 43 PT Problem 2 PT Problem #2 Pain PT Goal 1 Goal / Goal Update 1. Patient to report highest pain at 2/10 -met 2. Patient to report no sleep disturbance due to R shoulder pain -not met Target Visit 10 Progress Partially Met PT Goal 2 Goal / Goal Update continue 2 Target Visit 43 PT Problem 3 PT Problem #3 Impaired Range of Motion PT Goal 1 Goal / Goal Update 1. patient to demonstrate 160 deg of R shoulder passive flexion Continue Target Visit 10 Progress Met PT Goal 2 Goal / Goal Update 2. patient to demonstrate 160 deg of R shoulder active flexion to return to reaching into cabinets for house hold tasks Continue Target Visit 43 Progress Not Met PT Problem 4 PT Problem #4 Impaired Strength PT Goal 1 Goal / Goal Update Patient to demonstrate 4+/5 R UE strength to return to lifting for house hold tasks Target Visit 10 Progress Not Met PT Goal 2 Goal / Goal Update continue Target Visit 43 PT Problem 5 PT Problem #5 Impaired Functional Mobility PT Goal 1 Goal / Goal Update 1. Patient to demonstrate 20% improvement on QuickDash -met 2. Patient to report ability to dress without assistance -met 3. Patient to report ability to fix hair at PLOF -met Target Visit 10 Progress Partially Met PT Goal 2 Goal / Goal Update Continue Target Visit 35 Progress Met
--- NOTE | 2024-12-16 12:20 | PTOPPROG ---
Assessment and note entered by Nicol Silva, PT Evaluation Information Assessment Status Progress Diagnosis R shoulder pain Other ICD-10 Condition Codes ( Z98.890 PT) Onset 08/11/24 Subjective Information Cyndi reports her right shoulder is getting better overall but she still notes weakness and she wakes due to pain as well. She saw the doctor recently and was referred for another round of PT to work on strength. She was instructed to keep lifting to 3 lbs and under until that becomes easy then to limit it to 5 lbs. She will see the doctor again in February and expects to be released at that time. Assessment PT Clinical Summary Cyndi Pearce is now 18 weeks s/p right shoulder rotator cuff repair. She is reporting less pain overall but still gets wakened by pain every few nights. She also still has limitations with lifting and her doctor has her on a 3# limit with progression to a 5# limit when 3# becomes easy. She demonstrates improved right shoulder active and passive ROM from last progress note however, she is still limited with active external rotation, flexion, and abduction. She continues to progress with strength but continues to have moderate deficits in right shoulder strength. 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 She will continue to benefit from skilled PT to further address ongoing limitations and progress through her post operative protocol. Plan of Care Interventions Electrical Stimulation,Hot Pack/Cold Pack,Neuro Re -education,Patient/Caregiver Education,Therapeutic Activities,Therapeutic Exercise PT Services Indicated Yes Treatment Frequency and Continue 2 times a week for 8 visits Duration These treatments will address the objective and functional deficits as defined above. The patient will be advanced safely and appropriately in order for the patient to progress towards his/her prior level of function. Additional exercises will be introduced and as well as a comprehensive home exercise program upon discharge, if needed, ?to ensure carryover of functional gains achieved in the clinic. This treatment plan has been reviewed and agreement upon by the patient.
--- NOTE | 2025-01-14 10:32 | OPREHPOC ---
Outpatient Therapy Plan of Care This is a Multidisciplinary Plan of Care that may contain components documented by all disciplines (PT, OT, and ST.) PT Problem 1 PT Problem #1 Knowledge Deficit PT Goal 1 Goal / Goal Update Patient to demonstrate independence with HEP Target Visit 2 Progress Met PT Goal 2 Goal / Goal Update Continue to progress as protocol allows Target Visit 43 Progress Met PT Problem 2 PT Problem #2 Pain PT Goal 1 Goal / Goal Update 1. Patient to report highest pain at 2/10 -met 2. Patient to report no sleep disturbance due to R shoulder pain -met Target Visit 10 Progress Partially Met PT Goal 2 Goal / Goal Update continue 2 Target Visit 43 Progress Met PT Problem 3 PT Problem #3 Impaired Range of Motion PT Goal 1 Goal / Goal Update 1. patient to demonstrate 160 deg of R shoulder passive flexion Continue Target Visit 10 Progress Met PT Goal 2 Goal / Goal Update 2. patient to demonstrate 160 deg of R shoulder active flexion to return to reaching into cabinets for house hold tasks Continue Target Visit 43 Progress Met PT Problem 4 PT Problem #4 Impaired Strength PT Goal 1 Goal / Goal Update Patient to demonstrate 4+/5 R UE strength to return to lifting for house hold tasks Target Visit 10 Progress Not Met PT Goal 2 Goal / Goal Update met except abduction Target Visit 43 Progress Partially Met PT Problem 5 PT Problem #5 Impaired Functional Mobility PT Goal 1 Goal / Goal Update 1. Patient to demonstrate 20% improvement on QuickDash -met 2. Patient to report ability to dress without assistance -met 3. Patient to report ability to fix hair at PLOF -met Target Visit 10 Progress Partially Met PT Goal 2 Goal / Goal Update Continue Target Visit 35 Progress Met
--- NOTE | 2025-01-14 10:33 | PTOPDC ---
Assessment and note entered by Nicol Silva, PT Evaluation Information Assessment Status Discharge Diagnosis R shoulder pain Other ICD-10 Condition Codes ( Z98.890 PT) Onset 08/11/24 Subjective Information Cyndi reports her right shoulder is getting better overall. She notes it is getting easier to sleep on her right side. She still has to limit how long she uses her right arm to lift overhead and push the vaccuum. Reported Pain Level Pain Score 0: Self Report Assessment PT Clinical Summary Cyndi Pearce is now 22 weeks s/p right shoulder rotator cuff repair. She is reporting less pain and improved ability to sleep. She still limits lifting to 3# or less overhead. She demonstrates improved right shoulder active and passive ROM with range being functional now. She also demonstrates improved strength. She has met all goals and will be discharged to an independent [facility]. Plan of Care PT Services Indicated No
== END 2025-01-14 20:00 | disposition home or self-care (01) ==
LOC: CHSPT 08:45
PROVIDERS: Visit Provider Orthopaedic Surgery
DX: M25.511 Pain in right shoulder (principal); Z98.890 Other specified postprocedural states
CPT/HCPCS: 97014; 97110; 97140; 97530; G0283

== ENCOUNTER 2025-03-03 11:32 | Outpatient (CLI) | payer MEDICARE, MEDICAID, SELFPAY ==
[2025-03-03 11:48] LABS: Hematocrit 37.0 % (35.0-42.0); Hemoglobin 11.5 g/dL (11.7-13.8); Mean Corpuscular HGB Conc 31.1 g/dL (32-36); Mean Corpuscular Hemoglobin 26.1 pg (27.0-31.0); Mean Corpuscular Volume 83.9 fL (78.0-102.0); Platelet Count Result 276 K/mm3 (150-420); Red Blood Count 4.41 M/mm3 (4.20-5.40); White Blood Count 6.0 K/mm3 (4.8-10.8)
[2025-03-03 11:54] LABS: Add Urine Microscopic? NO; Appearance Urine Clear (Clear); Glucose Urine UA Negative (Negative); Leukocyte Esterase Ur Negative (Negative); Nitrate Urine Negative (Negative); Specific Grav Ur 1.020 (1.010-1.020)
[2025-03-03 15:13] LABS: Alanine Aminotransferase 17 U/L (6-35); Albumin Level 4.3 g/dL (3.5-5.1); Alkaline Phosphatase 124 U/L (38-126); Anion Gap 11 mmol/L (4-12); Aspartate Amino Transferase 20 U/L (14-36); Bilirubin,Total 1.2 mg/dL (0.2-1.3); Blood Urea Nitrogen 26 mg/dL (7-17); Calcium 10.5 mg/dL (8.4-10.2); Carbon Dioxide 25 mmol/L (22-30); Chloride 105 mmol/L (98-107); Cholesterol 221 mg/dL (0-200); Estimated Glomerular Filt Rate > 60; Glucose 90 mg/dL (65-110); HDL Direct 54 mg/dL; Magnesium 2.1 mg/dL (1.6-2.3); Osmolality Calculated 296 mOsm/kg (285-295); Potassium 4.1 mmol/L (3.4-5.0); Sodium 141 mmol/L (137-145); Total Protein 7.0 g/dL (6.3-8.2); Triglycerides 115 mg/dL (<150)
[2025-03-03 15:43] LABS: Thyroid Stimulating Hormone 1.300 uIU/mL (0.465-4.680)
== END 2025-03-03 11:33 | disposition home or self-care (01) ==
LOC: CHSLAB 11:34
PROVIDERS: PCP Internal Medicine; Visit Provider Internal Medicine
DX: D64.9 Anemia, unspecified (principal); I10 Essential (primary) hypertension
CPT/HCPCS: 36415; 80053; 80061; 81003; 83735; 84443; 85027